=== PATIENT | male | born 1965 | race Caucasian/White ===

== ENCOUNTER 2021-09-30 16:07 | Inpatient (IN) | payer OTHER, BC ==
[~2021-09-30 16:07] MED LIST: Iopamidol 370 76% 50 ML VIAL FS ONE; Iopamidol-370 76% 500 ML 1 ML ONE
[2021-09-30] MEDS ORDERED: CEFAZOLIN 1 GM VIAL ONE (16:21)
[2021-09-30] MEDS ORDERED: Boostrix 0.5 ML (Tdap) VIAL ONE (16:21)
[2021-09-30] MEDS ORDERED: Sodium Bicarb 50 MEQ/50 ML Abboject 8.4% SYRINGE ONE (16:24)
[2021-09-30] MEDS ORDERED: Calcium Chloride 1 GM/10 ML Abboject SYRINGE ONE (16:24)
[2021-09-30 16:38] LABS: #Basophils 0.1 thou/uL (0.0-0.2); #Eosinphils 0.1 thou/uL (0.0-0.7); #Lymphocytes 3.6 thou/uL (1.20-3.40); #Monocytes 0.9 thou/uL (0.11-0.59); #Neutrophils 8.9 thou/uL (1.40-6.50); %Basophils 0.4 % (0.0-1.0); %Eosinophils 0.7 % (0.0-10.0); %Lymphocytes 26.6 % (21.0-51.0); %Monocytes 6.5 % (0.0-10.0); %Neutrophils 65.7 % (42.0-75.0); Hemoglobin 15.5 g/dL (14.0-18.0); Mean Corpuscular HGB CONC 33.9 g/dL (32.0-36.0); Mean Corpuscular Hemoglobin 31.1 pg (27.0-31.0); Mean Corpuscular Volume 91.6 fL (78.0-98.0); Platelet Count 300 thou/uL (130-400); RBC Distribution Width 12.1 % (11.5-14.5); White Blood Cell (WBC) Count 13.5 thou/uL (4.8-10.8)
[2021-09-30 16:39] LABS: INR-International Normal Ratio 1.1; Prothrombin Time 13.9 sec (12.0-14.7)
[2021-09-30 16:51] LABS: ALT (SGPT) 150 U/L (8-55); AST (SGOT) 109 U/L (5-34); Albumin 4.5 g/dL (3.5-5.0); Alkaline Phosphatase 58 U/L (40-110); Anion Gap 17 mmol/L (10-20); BUN (Urea Nitrogen) 17 mg/dL (8.9-20.6); Bilirubin, Total 0.9 mg/dL (0.2-1.2); Calc. Creatinine Clearance 0 mL/min (70-130); Calcium 9.7 mg/dL (7.8-10.44); Carbon Dioxide 23 mmol/L (22-29); Chloride 105 mmol/L (98-107); Globulin 2.3 g/dL (2.4-3.5); Glucose 180 mg/dL (70-105); Potassium 4.1 mmol/L (3.5-5.1); Protein, Total 6.8 g/dL (6.0-8.3); Sodium 141 mmol/L (136-145)
[2021-09-30 16:56] LABS: Acetaminophen Less than 6.0 mcg/mL (10.0-30.0); Alcohol Less than 10 mg/dL (Less than 10); Salicylate Less than 8.0 mg/dL (15.0-30.0)
[2021-09-30 16:58] LABS: Clarity Hazy (Clear); Leukocyte Unable to Interpret Leu/uL (Negative); Nitrite Unable to Interpret (Negative); Protein, Urine (Dipstick) Unable to Interpret mg/dL (Neg-Trace); Specific Gravity, Urine 1.017 (1.002-1.036); pH, Urine 6.5 (5.0-9.0)
[2021-09-30 16:59] LABS: Bilirubin Unable to Interpret (Negative); Blood, Urine Unable to Interpret (Negative); Glucose, Urine (Dipstick) Unable to Interpret mg/dL (Negative); Ketone, Urine Unable to Interpret mg/dL (Negative); Urobilinogen UNABLE TO INTERPRET mg/dL (Less than 2)
[2021-09-30 17:00] LABS: Amphetamine Not Detected (NotDetected); Bacteria/HPF Rare-Few HPF (None Seen); Barbiturates Screen Not Detected (NotDetected); Benzodiazepine Screen Not Detected (NotDetected); Cocaine Metabolite Screen Not Detected (NotDetected); Methadone Not Detected (NotDetected); Methamphetamine Not Detected (NotDetected); Opiate Screen Not Detected (NotDetected); Oxycodone Screen Not Detected (NotDetected); Phencyclidine (PCP) Not Detected (NotDetected); RBC/HPF Greater than 50 HPF (0-3); Squamous Epithelial None Seen HPF (0-3); THC/Cannabinoid Screen Detected (NotDetected); Tricyclic Screen Not Detected (NotDetected); WBC/HPF None Seen HPF (0-3)
[2021-09-30] MEDS ORDERED: Midazolam HCl 2 mg/2 ml Vial ONE (17:14)
[2021-09-30] MEDS ORDERED: Propofol 1,000 MG/100 ML VIAL IV ONE (17:36)
[2021-09-30] MEDS ORDERED: Insulin Regular 300 UNITS/3 ML VIAL SC PRN (18:03)
[2021-09-30] MEDS ORDERED: hydrALAZINE 20 MG/ML VIAL SLOW IVP PRN (18:03)
[2021-09-30] MEDS ORDERED: Dextrose 50% Abboject 50 ML SYRINGE SLOW IVP PRN (18:03)
[2021-09-30] MEDS ORDERED: Dextrose 5% in Water 1,000 ML IV PRN (18:03)
[2021-09-30 18:04] LABS: Actual Bicarbonate (HCO3a) 27.2 mEq/L (22-28); Analyzer IN Cardio ER; Base Excess (BEa) 0.5 mEq/L (-2.0 to +3.0); CO2 Tension 52.5 mmHg (35.0-45.0); Carboxyhemoglobin (COHb) 0.3 gm% (0.0-3.0); Hemoglobin (Hb) 13.9 g/dL (14.0-18.0); O2 Tension (PaO2), arterial 164.4 mmHg (80.0-100.0); Potassium - ABG Lab 3.67 mmol/L (3.70-5.30); pH, Arterial 7.33 (7.35-7.45)
[2021-09-30 18:09] LABS: ALV-art Gradient 482.975 mmHg (0-20); Puncture Site LBA
[2021-09-30 18:37] LABS: CK (CPK) 279 U/L (30-200); Magnesium 1.5 mg/dL (1.6-2.6)
[2021-09-30] MEDS ORDERED: Magnesium Sulfate 3 GM in Sodium Chloride 0.9% 100 ML IV SCH (18:45)
[2021-09-30] MEDS: Sodium Chloride 0.9% 1,000 ML IV SCH (19:10)
[2021-09-30 19:18] LABS: SARS-CoV-2 NAA Rapid Test Not Detected (NotDetected)
[2021-09-30 19:31] LABS: Lactic Acid 3.9 mmol/L (0.5-2.2)
[2021-09-30] MEDS: Famotidine/PF 20 mg/2ml Vial SLOW IVP SCH (21:26)
[2021-09-30 21:32] LABS: Hemoglobin 12.1 g/dL (14.0-18.0); Platelet Count 219 thou/uL (130-400)
[2021-09-30] MEDS ORDERED: Acetaminophen 650 MG/20.3 ML UDCUP PO SCH (22:45)
[2021-09-30 23:31] LABS: Troponin I 0.343 ng/mL (< 0.028)
[2021-09-30] MEDS ORDERED: Hydrocortisone Sod Succ/PF 100 mg/2 ml Vial IVP SCH (23:45)
[2021-10-01] MEDS ORDERED: Midazolam HCl 2 mg/2 ml Vial SLOW IVP SCH (01:15)
[2021-10-01] MEDS ORDERED: Midazolam HCl 2 mg/2 ml Vial ONE ×2 (01:16→22:00)
[2021-10-01] MEDS ORDERED: Fentanyl CADD 100 ML ONE ×2 (02:18→11:33)
[2021-10-01] MEDS: Fentanyl CADD 100 ML IV SCH ×2 (02:22→13:13)
[2021-10-01] MEDS ORDERED: Sodium Chloride 0.9% 500 ML IV SCH (02:45)
[2021-10-01] MEDS: Sodium Chloride 0.9% 1,000 ML IV SCH ×3 (02:51→21:58)
[2021-10-01] MEDS: Propofol 1,000 MG/100 ML VIAL IV PRN (03:31)
[2021-10-01 04:40] LABS: #Lymphocytes 0.9 thou/uL (1.20-3.40); #Monocytes 0.8 thou/uL (0.11-0.59); #Neutrophils 6.2 thou/uL (1.40-6.50); %Basophils 0.2 % (0.0-1.0); %Eosinophils 0.2 % (0.0-10.0); %Lymphocytes 11.2 % (21.0-51.0); %Monocytes 10.3 % (0.0-10.0); %Neutrophils 78.2 % (42.0-75.0); Hemoglobin 9.4 g/dL (14.0-18.0); Mean Corpuscular HGB CONC 33.9 g/dL (32.0-36.0); Mean Corpuscular Hemoglobin 31.2 pg (27.0-31.0); Mean Platelet Volume 6.6 fL (7.4-10.4); Platelet Count 153 thou/uL (130-400); RBC Distribution Width 12.6 % (11.5-14.5); Red Blood Cell (RBC) Count 3.02 mill/uL (4.70-6.10); White Blood Cell (WBC) Count 7.9 thou/uL (4.8-10.8)
[2021-10-01 05:01] LABS: Anion Gap 12 mmol/L (10-20); BUN (Urea Nitrogen) 20 mg/dL (8.4-25.7); CK (CPK) 1308 U/L (30-200); Calc. Creatinine Clearance 71 mL/min (70-130); Calcium 8.8 mg/dL (7.8-10.44); Carbon Dioxide 27 mmol/L (22-29); Chloride 108 mmol/L (98-107); Glucose 141 mg/dL (70-105); Magnesium 2.2 mg/dL (1.6-2.6); Phosphorus 4.2 mg/dL (2.3-4.7); Potassium 4.2 mmol/L (3.5-5.1); Sodium 143 mmol/L (136-145)
[2021-10-01] MEDS: Acetaminophen 650 MG/20.3 ML UDCUP PO SCH ×4 (05:26→23:45)
[2021-10-01] MEDS: Hydrocortisone Sod Succ/PF 100 mg/2 ml Vial IVP SCH ×4 (06:23→23:45)
[2021-10-01 07:10] LABS: Actual Bicarbonate (HCO3a) 23.6 mEq/L (22-28); Base Excess (BEa) -1.2 mEq/L (-2.0 to +3.0); CO2 Tension 39.6 mmHg (35.0-45.0); Calcium, Ionized (arterial) 1.15 mmol/L (1.12-1.30); Carboxyhemoglobin (COHb) 0.3 gm% (0.0-3.0); Hemoglobin (Hb) 9.9 g/dL (14.0-18.0); O2 Tension (PaO2), arterial 140.5 mmHg (80.0-100.0); Potassium - ABG Lab 4.55 mmol/L (3.70-5.30); Puncture Site RBA; pH, Arterial 7.39 (7.35-7.45)
[2021-10-01] MEDS ORDERED: Sodium Chloride 0.9% 1,000 ML IV SCH ×3 (08:00→21:15)
[2021-10-01] MEDS ORDERED: Propofol BOLUS 1,000 MG/100 ML VIAL IV PRN (08:30)
[2021-10-01] MEDS ORDERED: Fentanyl BOLUS 250 ML IVPB PRN (08:30)
[2021-10-01] MEDS: Famotidine/PF 20 mg/2ml Vial SLOW IVP SCH ×2 (08:45→21:57)
[2021-10-01] MEDS ORDERED: Vecuronium 10 MG VIAL ONE (09:20)
[2021-10-01] MEDS ORDERED: Sterile Water 10 ML ONE ×2 (09:20)
[2021-10-01] MEDS ORDERED: Vecuronium 10 MG VIAL IV SCH (09:45)
[2021-10-01] MEDS ORDERED: Sterile Water 10 ML VIAL FS SCH (09:45)
[2021-10-01] MEDS ORDERED: Midazolam HCl 2 mg/2 ml Vial SLOW IVP PRN (09:56)
[2021-10-01 10:02] LABS: Troponin I 0.241 ng/mL (< 0.028)
[2021-10-01] MEDS ORDERED: Albumin 5% 500 ML ONE (10:58)
[2021-10-01] MEDS ORDERED: Albumin 5% 250 ML ONE ×3 (11:02→12:06)
[2021-10-01 12:33] LABS: Actual Bicarbonate (HCO3a) 23.5 mEq/L (22-28); Analyzer IN Cardio OR; Base Excess (BEa) 0.2 mEq/L (-2.0 to +3.0); CO2 Tension 32.1 mmHg (35.0-45.0); Calcium, Ionized (arterial) 1.03 mmol/L (1.12-1.30); Carboxyhemoglobin (COHb) 1.5 gm% (0.0-3.0); Hemoglobin (Hb) 6.9 g/dL (14.0-18.0); pH, Arterial 7.48 (7.35-7.45)
[2021-10-01 12:39] LABS: Puncture Site Arterial Line
[2021-10-01 12:40] LABS: ALV-art Gradient 184.375 mmHg (0-20)
[2021-10-01] MEDS ORDERED: Calcium Chloride 1 GM/10 ML Abboject SYRINGE IVP SCH (13:00)
[2021-10-01 14:54] LABS: #Lymphocytes 0.8 thou/uL (1.20-3.40); #Monocytes 0.5 thou/uL (0.11-0.59); #Neutrophils 3.9 thou/uL (1.40-6.50); %Basophils 0.2 % (0.0-1.0); %Eosinophils 0.1 % (0.0-10.0); %Lymphocytes 15.4 % (21.0-51.0); %Monocytes 8.8 % (0.0-10.0); %Neutrophils 75.5 % (42.0-75.0); Hemoglobin 8.9 g/dL (14.0-18.0); Mean Corpuscular HGB CONC 35.8 g/dL (32.0-36.0); Mean Corpuscular Hemoglobin 33.1 pg (27.0-31.0); Mean Corpuscular Volume 92.6 fL (78.0-98.0); Mean Platelet Volume 6.6 fL (7.4-10.4); Platelet Count 83 thou/uL (130-400); RBC Distribution Width 12.4 % (11.5-14.5); Red Blood Cell (RBC) Count 2.67 mill/uL (4.70-6.10); White Blood Cell (WBC) Count 5.1 thou/uL (4.8-10.8)
[2021-10-01 14:58] LABS: INR-International Normal Ratio 1.4; Prothrombin Time 16.9 sec (12.0-14.7)
[2021-10-01 14:59] LABS: PTT 41.7 sec (22.9-36.1)
[2021-10-01 15:06] LABS: Lactic Acid 2.7 mmol/L (0.5-2.2)
[2021-10-01 15:09] LABS: Anion Gap 10 mmol/L (10-20); BUN (Urea Nitrogen) 24 mg/dL (8.4-25.7); Calc. Creatinine Clearance 98 mL/min (70-130); Calcium 10.7 mg/dL (7.8-10.44); Carbon Dioxide 23 mmol/L (22-29); Chloride 113 mmol/L (98-107); Glucose 147 mg/dL (70-105); Magnesium 2.1 mg/dL (1.6-2.6); Phosphorus 3.2 mg/dL (2.3-4.7); Potassium 4.3 mmol/L (3.5-5.1); Sodium 142 mmol/L (136-145)
[2021-10-01 15:11] LABS: Band 14 % (5-11); Lymphocytes 10 % (21-51); MDiff Complete? YES; Monocytes 5 % (0-10); Neutrophil 71 % (42-75); Platelet Morphology Comment Appears Decreased; Polychromasia SLIGHT = 2-3 cells (100X) (0-2/hpf)
[2021-10-01 22:14] LABS: Hemoglobin 9.5 g/dL (14.0-18.0)
[2021-10-02] MEDS ORDERED: Dexmedetomidine 1,000 MCG in Sodium Chloride 0.9% 250 ML 240 ML IVPB SCH (00:15)
[2021-10-02] MEDS ORDERED: Midazolam HCl 2 mg/2 ml Vial SLOW IVP SCH (02:30)
[2021-10-02] MEDS: Propofol 1,000 MG/100 ML VIAL IV PRN ×3 (03:01→15:02)
[2021-10-02] MEDS: Sodium Chloride 0.9% 1,000 ML IV SCH ×3 (03:53→19:59)
[2021-10-02 04:50] LABS: Hemoglobin 8.8 g/dL (14.0-18.0); Mean Corpuscular Hemoglobin 32.2 pg (27.0-31.0); Mean Corpuscular Volume 92.2 fL (78.0-98.0); Mean Platelet Volume 6.9 fL (7.4-10.4); Platelet Count 74 thou/uL (130-400); RBC Distribution Width 12.5 % (11.5-14.5); Red Blood Cell (RBC) Count 2.74 mill/uL (4.70-6.10); White Blood Cell (WBC) Count 6.3 thou/uL (4.8-10.8)
[2021-10-02 04:51] LABS: Band 13 % (5-11); Hypochromia SLIGHT = 6-15 cells (100X) (0-5/hpf); Lactic Acid 1.4 mmol/L (0.5-2.2); Lymphocytes 9 % (21-51); MDiff Complete? YES; Monocytes 7 % (0-10); Neutrophil 71 % (42-75); Platelet Morphology Comment Appears Decreased
[2021-10-02 04:54] LABS: Troponin I 0.136 ng/mL (< 0.028)
[2021-10-02 05:14] LABS: Anion Gap 10 mmol/L (10-20); BUN (Urea Nitrogen) 23 mg/dL (8.4-25.7); CK (CPK) 1211 U/L (30-200); Calc. Creatinine Clearance 135 mL/min (70-130); Calcium 8.5 mg/dL (7.8-10.44); Carbon Dioxide 23 mmol/L (22-29); Chloride 112 mmol/L (98-107); Glucose 140 mg/dL (70-105); Magnesium 1.8 mg/dL (1.6-2.6); Phosphorus 2.2 mg/dL (2.3-4.7); Potassium 3.8 mmol/L (3.5-5.1); Sodium 141 mmol/L (136-145)
[2021-10-02] MEDS: Hydrocortisone Sod Succ/PF 100 mg/2 ml Vial IVP SCH ×4 (06:00→23:06)
[2021-10-02] MEDS: Acetaminophen 650 MG/20.3 ML UDCUP PO SCH ×4 (06:00→23:06)
[2021-10-02] MEDS: Fentanyl CADD 100 ML IV SCH ×2 (07:22→20:55)
[2021-10-02] MEDS ORDERED: Potassium Phosphate 15 MMOL, Magnesium Sulfate 2 GM in Sodium Chloride 0.9% 250 ML 250 ML IVPB SCH (07:45)
[2021-10-02] MEDS ORDERED: Magnesium Sulfate 2 GM in Sodium Chloride 0.9% 100 ML IVPB SCH (08:00)
[2021-10-02] MEDS: Famotidine/PF 20 mg/2ml Vial SLOW IVP SCH ×2 (08:25→22:46)
[2021-10-02 10:37] LABS: Hemoglobin 9.7 g/dL (14.0-18.0); Mean Corpuscular HGB CONC 34.8 g/dL (32.0-36.0); Mean Corpuscular Hemoglobin 32.2 pg (27.0-31.0); Mean Corpuscular Volume 92.5 fL (78.0-98.0); Mean Platelet Volume 6.8 fL (7.4-10.4); Platelet Count 74 thou/uL (130-400); RBC Distribution Width 12.5 % (11.5-14.5); Red Blood Cell (RBC) Count 2.99 mill/uL (4.70-6.10); White Blood Cell (WBC) Count 5.1 thou/uL (4.8-10.8)
[2021-10-02 10:49] LABS: Lactic Acid 2.3 mmol/L (0.5-2.2)
[2021-10-02 11:26] LABS: Band 38 % (5-11); Lymphocytes 7 % (21-51); MDiff Complete? YES; Monocytes 2 % (0-10); Neutrophil 53 % (42-75); Platelet Morphology Comment Appears Decreased; Polychromasia SLIGHT = 2-3 cells (100X) (0-2/hpf)
[2021-10-02] MEDS ORDERED: Iopamidol-370 76% 500 ML 1 ML ONE (12:20)
[2021-10-02] MEDS ORDERED: Vecuronium 10 MG VIAL ONE (15:06)
[2021-10-02 16:26] LABS: INR-International Normal Ratio 1.4; Prothrombin Time 16.9 sec (12.0-14.7)
[2021-10-02 16:27] LABS: PTT 39.3 sec (22.9-36.1)
[2021-10-02] MEDS ORDERED: Norepinephrine 8 MG/0.9% NS 250 ML ONE (16:34)
[2021-10-02] MEDS ORDERED: Norepinephrine 8 MG/0.9% NS 250 ML IVPB SCH (17:15)
[2021-10-02] MEDS ORDERED: Fentanyl 100 MCG/2 ML VIAL ONE (17:16)
[2021-10-02] MEDS ORDERED: Phenylephrine 10 MG/ML VIAL ONE (17:16)
[2021-10-02] MEDS ORDERED: Bupivacaine PF 0.5% 30 ML VIAL ONE (17:17)
[2021-10-02] MEDS ORDERED: Lidocaine 1% w/Epinephrine 1:100K 20 ML VIAL ONE (17:17)
[2021-10-02] MEDS ORDERED: Bupivacaine 0.25% HCL 30 ML VIAL ONE (17:17)
[2021-10-02] MEDS ORDERED: Albuterol Sulfate HFA (OR ONLY) ONE (17:34)
[2021-10-02] MEDS ORDERED: PHENYLEPHRINE-NS 100 MCG/ML 10 ML SYRINGE ONE (17:34)
[2021-10-02] MEDS ORDERED: Rocuronium Bromide 10 MG/ML (10ML VIAL) ONE (17:34)
[2021-10-02] MEDS ORDERED: Midazolam HCl 5 mg/5 ml Vial ONE (18:50)
[2021-10-02 19:57] LABS: Actual Bicarbonate (HCO3a) 18.6 mEq/L (22-28); Base Excess (BEa) -7.7 mEq/L (-2.0 to +3.0); CO2 Tension 41.4 mmHg (35.0-45.0); Calcium, Ionized (arterial) 1.13 mmol/L (1.12-1.30); Carboxyhemoglobin (COHb) 0.3 gm% (0.0-3.0); Potassium - ABG Lab 3.36 mmol/L (3.70-5.30); pH, Arterial 7.27 (7.35-7.45)
[2021-10-02 20:03] LABS: Puncture Site Arterial Line
[2021-10-02] MEDS ORDERED: Fentanyl CADD 100 ML ONE (20:50)
[2021-10-03] MEDS: Propofol 1,000 MG/100 ML VIAL IV PRN ×3 (01:15→17:27)
[2021-10-03] MEDS ORDERED: Midazolam HCl 2 mg/2 ml Vial SLOW IVP PRN (03:42)
[2021-10-03] MEDS: Sodium Chloride 0.9% 1,000 ML IV SCH ×2 (03:44→14:11)
[2021-10-03] MEDS ORDERED: Fentanyl CADD 100 ML ONE (04:47)
[2021-10-03] MEDS: Fentanyl CADD 100 ML IV SCH ×2 (04:52→14:13)
[2021-10-03 04:53] LABS: Lactic Acid 2.4 mmol/L (0.5-2.2)
[2021-10-03 04:59] LABS: Anion Gap 10 mmol/L (10-20); BUN (Urea Nitrogen) 18 mg/dL (8.4-25.7); CK (CPK) 1436 U/L (30-200); Calc. Creatinine Clearance 149 mL/min (70-130); Calcium 7.8 mg/dL (7.8-10.44); Carbon Dioxide 22 mmol/L (22-29); Chloride 116 mmol/L (98-107); Glucose 111 mg/dL (70-105); Magnesium 1.9 mg/dL (1.6-2.6); Potassium 4.2 mmol/L (3.5-5.1); Sodium 144 mmol/L (136-145)
[2021-10-03 05:02] LABS: Band 51 % (5-11); Hemoglobin 9.2 g/dL (14.0-18.0); Lymphocytes 6 % (21-51); MDiff Complete? YES; Mean Corpuscular HGB CONC 33.9 g/dL (32.0-36.0); Mean Corpuscular Hemoglobin 31.6 pg (27.0-31.0); Mean Corpuscular Volume 93.2 fL (78.0-98.0); Mean Platelet Volume 7.2 fL (7.4-10.4); Metamyelocyte 5 % (0-0); Monocytes 4 % (0-10); Myelocyte 1 % (0-0); Neutrophil 32 % (42-75); Platelet Count 112 thou/uL (130-400); Platelet Morphology Comment Appears Decreased; RBC Distribution Width 13.1 % (11.5-14.5); RBC Morphology Normal; Reactive Lymphocytes 1 % (0-10); Red Blood Cell (RBC) Count 2.89 mill/uL (4.70-6.10); White Blood Cell (WBC) Count 7.8 thou/uL (4.8-10.8)
[2021-10-03] MEDS: Hydrocortisone Sod Succ/PF 100 mg/2 ml Vial IVP SCH ×4 (05:15→23:58)
[2021-10-03] MEDS: Acetaminophen 650 MG/20.3 ML UDCUP PO SCH ×4 (05:15→23:58)
[2021-10-03 07:33] LABS: Actual Bicarbonate (HCO3a) 21.8 mEq/L (22-28); Base Excess (BEa) -4.7 mEq/L (-2.0 to +3.0); Calcium, Ionized (arterial) 1.08 mmol/L (1.12-1.30); Carboxyhemoglobin (COHb) 0.3 gm% (0.0-3.0); Hemoglobin (Hb) 9.3 g/dL (14.0-18.0); O2 Tension (PaO2), arterial 73.3 mmHg (80.0-100.0); Potassium - ABG Lab 4.29 mmol/L (3.70-5.30); pH, Arterial 7.28 (7.35-7.45)
[2021-10-03 07:48] LABS: Puncture Site Arterial Line
[2021-10-03] MEDS: Famotidine/PF 20 mg/2ml Vial SLOW IVP SCH ×2 (08:33→21:45)
[2021-10-03] MEDS ORDERED: Furosemide 40 MG/4 ML VIAL ONE (08:57)
[2021-10-03] MEDS ORDERED: FLU VACC QS2021-22(6MOS UP)/PF 60 MCG/0.5 ML SYRINGE IM ONE (09:00)
[2021-10-03] MEDS ORDERED: Furosemide 20 MG/2 ML VIAL SLOW IVP SCH (09:00)
[2021-10-03] MEDS: Vecuronium Bromide 50 MG in Sodium Chloride 0.9% 250 ML 250 ML IV SCH (10:33)
[2021-10-03] MEDS: Norepinephrine 8 MG/0.9% NS 250 ML IVPB SCH (10:33)
[2021-10-03] MEDS: Dexmedetomidine 1,000 MCG in Sodium Chloride 0.9% 250 ML 240 ML IVPB SCH (23:37)
[2021-10-04] MEDS: Vecuronium Bromide 50 MG in Sodium Chloride 0.9% 250 ML 250 ML IV SCH ×2 (00:05→11:27)
[2021-10-04] MEDS ORDERED: Fentanyl CADD 100 ML ONE ×3 (00:30→21:07)
[2021-10-04] MEDS: Fentanyl CADD 100 ML IV SCH ×3 (01:02→21:10)
[2021-10-04] MEDS: Propofol 1,000 MG/100 ML VIAL IV PRN ×4 (03:00→18:32)
[2021-10-04 03:30] LABS: Anion Gap 9 mmol/L (10-20); BUN (Urea Nitrogen) 14 mg/dL (8.4-25.7); CK (CPK) 546 U/L (30-200); Calc. Creatinine Clearance 179 mL/min (70-130); Calcium 8.5 mg/dL (7.8-10.44); Carbon Dioxide 29 mmol/L (22-29); Chloride 112 mmol/L (98-107); Glucose 130 mg/dL (70-105); Magnesium 2.1 mg/dL (1.6-2.6); Potassium 4.2 mmol/L (3.5-5.1); Sodium 146 mmol/L (136-145)
[2021-10-04 03:36] LABS: Phosphorus 2.1 mg/dL (2.3-4.7)
[2021-10-04 04:24] LABS: Band 36 % (5-11); Hemoglobin 9.3 g/dL (14.0-18.0); Lymphocytes 17 % (21-51); MDiff Complete? YES; Mean Corpuscular HGB CONC 35.8 g/dL (32.0-36.0); Mean Corpuscular Hemoglobin 33.1 pg (27.0-31.0); Mean Corpuscular Volume 92.7 fL (78.0-98.0); Mean Platelet Volume 6.6 fL (7.4-10.4); Monocytes 4 % (0-10); Neutrophil 43 % (42-75); Platelet Count 115 thou/uL (130-400); Platelet Morphology Comment Appears Decreased; RBC Distribution Width 13.2 % (11.5-14.5); Red Blood Cell (RBC) Count 2.81 mill/uL (4.70-6.10); White Blood Cell (WBC) Count 6.8 thou/uL (4.8-10.8)
[2021-10-04] MEDS: Hydrocortisone Sod Succ/PF 100 mg/2 ml Vial IVP SCH ×4 (05:37→23:27)
[2021-10-04] MEDS: Acetaminophen 650 MG/20.3 ML UDCUP PO SCH ×4 (05:37→23:26)
[2021-10-04] MEDS: Norepinephrine 8 MG/0.9% NS 250 ML IVPB SCH ×2 (05:49→22:04)
[2021-10-04] MEDS: Sodium Chloride 0.9% 1,000 ML IV SCH ×2 (06:12→20:44)
[2021-10-04 07:04] LABS: Base Excess (BEa) 2.5 mEq/L (-2.0 to +3.0); Calcium, Ionized (arterial) 1.13 mmol/L (1.12-1.30); Carboxyhemoglobin (COHb) 0.3 gm% (0.0-3.0); Hemoglobin (Hb) 8.6 g/dL (14.0-18.0); O2 Tension (PaO2), arterial 82.1 mmHg (80.0-100.0); Potassium - ABG Lab 4.05 mmol/L (3.70-5.30); pH, Arterial 7.38 (7.35-7.45)
[2021-10-04 07:38] LABS: Puncture Site Arterial Line
[2021-10-04] MEDS: Polyethylene Glycol 3350 17 GM Packet PO SCH (09:03)
[2021-10-04] MEDS: Senokot S 8.6-50 MG TAB PO SCH ×2 (09:04→20:27)
[2021-10-04] MEDS: Famotidine/PF 20 mg/2ml Vial SLOW IVP SCH ×2 (09:09→20:28)
[2021-10-04] MEDS: Dexmedetomidine 1,000 MCG in Sodium Chloride 0.9% 250 ML 240 ML IVPB SCH ×2 (10:53→21:41)
[2021-10-04 16:53] LABS: Actual Bicarbonate (HCO3a) 30.3 mEq/L (22-28); Base Excess (BEa) 2.3 mEq/L (-2.0 to +3.0); Calcium, Ionized (arterial) 1.19 mmol/L (1.12-1.30); Carboxyhemoglobin (COHb) 0.2 gm% (0.0-3.0); Hemoglobin (Hb) 9.2 g/dL (14.0-18.0); O2 Tension (PaO2), arterial 74.5 mmHg (80.0-100.0); Potassium - ABG Lab 3.87 mmol/L (3.70-5.30); pH, Arterial 7.26 (7.35-7.45)
[2021-10-04] MEDS ORDERED: Piperacillin/Tazobactam 4.5 GM in Sodium Chloride 0.9% 100 ML IVPB SCH ×2 (16:55→22:00)
[2021-10-04 17:00] LABS: Puncture Site Arterial Line
[2021-10-04] MEDS ORDERED: Piperacillin/Tazobactam 3.375 GM in Sodium Chloride 0.9% 100 ML IVPB SCH (17:00)
[2021-10-04] MEDS ORDERED: Albumin 5% 250 ML ONE (18:23)
[2021-10-04] MEDS: Albumin 5% 250 ML ONE ×2 (18:25→18:26)
[2021-10-04] MEDS ORDERED: Sodium Chloride 0.9% 500 ML IV SCH ×2 (18:45)
[2021-10-04] MEDS ORDERED: Lactated Ringer's 500 ML IV SCH (18:45)
[2021-10-04] MEDS ORDERED: Calcium Chloride 1 GM/10 ML Abboject SYRINGE ONE (19:08)
[2021-10-04 19:11] LABS: Anion Gap 10 mmol/L (10-20); BUN (Urea Nitrogen) 18 mg/dL (8.4-25.7); Calc. Creatinine Clearance 148 mL/min (70-130); Carbon Dioxide 29 mmol/L (22-29); Chloride 112 mmol/L (98-107); Glucose 105 mg/dL (70-105); Magnesium 2.2 mg/dL (1.6-2.6); Phosphorus 1.6 mg/dL (2.3-4.7); Sodium 147 mmol/L (136-145)
[2021-10-04 19:11] LABS: Hemoglobin 7.8 g/dL (14.0-18.0); Mean Corpuscular HGB CONC 34.4 g/dL (32.0-36.0); Mean Corpuscular Hemoglobin 32.3 pg (27.0-31.0); Mean Corpuscular Volume 93.7 fL (78.0-98.0); Mean Platelet Volume 6.2 fL (7.4-10.4); Platelet Count 129 thou/uL (130-400); Red Blood Cell (RBC) Count 2.41 mill/uL (4.70-6.10); White Blood Cell (WBC) Count 6.1 thou/uL (4.8-10.8)
[2021-10-04] MEDS: Vasopressin 20 UNIT, Admixture Fee 1 EACH in Sodium Chloride 0.9% 50 ML IV SCH (19:26)
[2021-10-04 19:39] LABS: Band 49 % (5-11); Lymphocytes 9 % (21-51); MDiff Complete? YES; Monocytes 5 % (0-10); Myelocyte 1 % (0-0); Neutrophil 36 % (42-75); Platelet Morphology Comment Appears Decreased; RBC Morphology Normal
[2021-10-04] MEDS ORDERED: Potassium Phosphate 30 MMOL in Sodium Chloride 0.9% 250 ML 250 ML IVPB SCH (20:00)
[2021-10-04] MEDS: Piperacillin/Tazobactam 3.375 GM in Sodium Chloride 0.9% 100 ML IVPB SCH (20:28)
[2021-10-05] MEDS: Vasopressin 20 UNIT, Admixture Fee 1 EACH in Sodium Chloride 0.9% 50 ML IV SCH (01:54)
[2021-10-05] MEDS: Propofol 1,000 MG/100 ML VIAL IV PRN ×3 (04:51→19:59)
[2021-10-05] MEDS: Piperacillin/Tazobactam 3.375 GM in Sodium Chloride 0.9% 100 ML IVPB SCH (05:11)
[2021-10-05] MEDS: Acetaminophen 650 MG/20.3 ML UDCUP PO SCH ×4 (05:11→23:10)
[2021-10-05] MEDS: Hydrocortisone Sod Succ/PF 100 mg/2 ml Vial IVP SCH ×4 (05:11→23:14)
[2021-10-05 05:17] LABS: Anion Gap 11 mmol/L (10-20); BUN (Urea Nitrogen) 22 mg/dL (8.4-25.7); Calc. Creatinine Clearance 144 mL/min (70-130); Carbon Dioxide 28 mmol/L (22-29); Chloride 112 mmol/L (98-107); Glucose 145 mg/dL (70-105); Phosphorus 2.2 mg/dL (2.3-4.7); Sodium 147 mmol/L (136-145)
[2021-10-05 06:11] LABS: Hemoglobin 7.4 g/dL (14.0-18.0); Mean Corpuscular HGB CONC 34.6 g/dL (32.0-36.0); Mean Corpuscular Hemoglobin 32.4 pg (27.0-31.0); Mean Corpuscular Volume 93.7 fL (78.0-98.0); Mean Platelet Volume 6.2 fL (7.4-10.4); Platelet Count 111 thou/uL (130-400); RBC Distribution Width 12.9 % (11.5-14.5); Red Blood Cell (RBC) Count 2.29 mill/uL (4.70-6.10); White Blood Cell (WBC) Count 6.7 thou/uL (4.8-10.8)
[2021-10-05 06:14] LABS: Band 55 % (5-11); Dohle Bodies SLIGHT; Lymphocytes 9 % (21-51); MDiff Complete? YES; Monocytes 2 % (0-10); Neutrophil 34 % (42-75); Toxic Granulation SLIGHT
[2021-10-05] MEDS ORDERED: Fentanyl CADD 100 ML ONE ×2 (06:20→15:58)
[2021-10-05] MEDS: Fentanyl CADD 100 ML IV SCH ×2 (06:36→16:04)
[2021-10-05 07:28] LABS: Actual Bicarbonate (HCO3a) 25.5 mEq/L (22-28); Base Excess (BEa) 0.8 mEq/L (-2.0 to +3.0); Calcium, Ionized (arterial) 1.16 mmol/L (1.12-1.30); Carboxyhemoglobin (COHb) 1.1 gm% (0.0-3.0); Hemoglobin (Hb) 6.9 g/dL (14.0-18.0); O2 Tension (PaO2), arterial 128.6 mmHg (80.0-100.0); Potassium - ABG Lab 3.74 mmol/L (3.70-5.30); pH, Arterial 7.41 (7.35-7.45)
[2021-10-05 07:37] LABS: Puncture Site Arterial Line
[2021-10-05] MEDS ORDERED: Dexmedetomidine 1,000 MCG in Dextrose 5% in Water 240 ML IVPB SCH (08:00)
[2021-10-05] MEDS: Senokot S 8.6-50 MG TAB PO SCH ×2 (08:12→19:57)
[2021-10-05] MEDS: Polyethylene Glycol 3350 17 GM Packet PO SCH (08:12)
[2021-10-05] MEDS: Vecuronium Bromide 50 MG in Sodium Chloride 0.9% 250 ML 250 ML IV SCH (08:20)
[2021-10-05] MEDS: Dexmedetomidine 1,000 MCG in Sodium Chloride 0.9% 250 ML 240 ML IVPB SCH ×2 (08:24→08:25)
[2021-10-05] MEDS: Famotidine/PF 20 mg/2ml Vial SLOW IVP SCH ×2 (08:26→19:58)
[2021-10-05] MEDS ORDERED: WATER IV SCH (09:00)
[2021-10-05] MEDS ORDERED: ADMIXTURE FEE IV SCH (09:00)
[2021-10-05] MEDS ORDERED: DEXTROSE IV SCH (09:00)
[2021-10-05] MEDS ORDERED: VASOPRESSIN IV SCH (09:00)
[2021-10-05] MEDS: Piperacillin/Tazobactam 3.375 GM in Dextrose 5% in Water 100 ML IVPB SCH ×2 (12:00→19:58)
[2021-10-05] MEDS ORDERED: NS IVPB SCH (13:34)
[2021-10-05] MEDS ORDERED: DEXMEDETOMIDINE IVPB SCH (13:34)
[2021-10-05] MEDS ORDERED: WATER IVPB SCH (13:34)
[2021-10-05] MEDS ORDERED: KCL IVPB SCH (13:34)
[2021-10-05] MEDS ORDERED: DEXTROSE IVPB SCH (13:34)
[2021-10-05] MEDS: Sodium Chloride 0.9% 1,000 ML IV SCH (14:32)
[2021-10-05] MEDS ORDERED: Albumin 5% 250 ML ONE (15:19)
[2021-10-05] MEDS ORDERED: diphenhydrAMINE 50 MG/ML VIAL IVP STA (15:27)
[2021-10-05] MEDS ORDERED: Digoxin 0.5 MG/2 ML AMP SLOW IVP STA (15:33)
[2021-10-05 15:48] LABS: Hemoglobin 8.5 g/dL (14.0-18.0); Mean Corpuscular HGB CONC 32.7 g/dL (32.0-36.0); Mean Corpuscular Hemoglobin 30.6 pg (27.0-31.0); Mean Corpuscular Volume 93.6 fL (78.0-98.0); Mean Platelet Volume 6.9 fL (7.4-10.4); Platelet Count 116 thou/uL (130-400); RBC Distribution Width 14.1 % (11.5-14.5); Red Blood Cell (RBC) Count 2.76 mill/uL (4.70-6.10); White Blood Cell (WBC) Count 7.8 thou/uL (4.8-10.8)
[2021-10-05] MEDS ORDERED: Digoxin 0.5 MG/2 ML AMP ONE (15:55)
[2021-10-05 16:11] LABS: Anion Gap 14 mmol/L (10-20); BUN (Urea Nitrogen) 24 mg/dL (8.4-25.7); Calc. Creatinine Clearance 150 mL/min (70-130); Calcium 8.6 mg/dL (7.8-10.44); Carbon Dioxide 23 mmol/L (22-29); Chloride 112 mmol/L (98-107); Glucose 181 mg/dL (70-105); Phosphorus 2.1 mg/dL (2.3-4.7); Potassium 3.7 mmol/L (3.5-5.1); Sodium 145 mmol/L (136-145)
[2021-10-05 16:16] LABS: Troponin I 0.023 ng/mL (< 0.028)
[2021-10-05 16:21] LABS: Band 32 % (5-11); Dohle Bodies SLIGHT; Lymphocytes 8 % (21-51); MDiff Complete? YES; Metamyelocyte 5 % (0-0); Monocytes 13 % (0-10); Myelocyte 1 % (0-0); Neutrophil 41 % (42-75); Platelet Morphology Comment Appears Decreased; Polychromasia SLIGHT = 2-3 cells (100X) (0-2/hpf); Toxic Granulation SLIGHT; Vacuoles SLIGHT
[2021-10-05] MEDS ORDERED: Furosemide 20 MG/2 ML VIAL SLOW IVP SCH (17:00)
[2021-10-05] MEDS: Digoxin 0.5 MG/2 ML AMP SLOW IVP SCH (23:14)
[2021-10-06] MEDS: Vecuronium Bromide 50 MG in Sodium Chloride 0.9% 250 ML 250 ML IV SCH ×2 (02:09→12:36)
[2021-10-06] MEDS ORDERED: Fentanyl CADD 100 ML ONE (03:36)
[2021-10-06] MEDS: Sodium Chloride 0.9% 1,000 ML IV SCH ×2 (04:24→21:06)
[2021-10-06] MEDS: Fentanyl CADD 100 ML IV SCH ×2 (04:40→13:52)
[2021-10-06] MEDS: Piperacillin/Tazobactam 3.375 GM in Dextrose 5% in Water 100 ML IVPB SCH ×3 (04:41→21:05)
[2021-10-06] MEDS: Acetaminophen 650 MG/20.3 ML UDCUP PO SCH ×4 (05:15→23:38)
[2021-10-06] MEDS: Hydrocortisone Sod Succ/PF 100 mg/2 ml Vial IVP SCH ×4 (05:16→23:39)
[2021-10-06 05:43] LABS: Anion Gap 10 mmol/L (10-20); BUN (Urea Nitrogen) 23 mg/dL (8.4-25.7); Calc. Creatinine Clearance 153 mL/min (70-130); Calcium 8.7 mg/dL (7.8-10.44); Carbon Dioxide 31 mmol/L (22-29); Chloride 110 mmol/L (98-107); Glucose 138 mg/dL (70-105); Magnesium 1.9 mg/dL (1.6-2.6); Phosphorus 2.1 mg/dL (2.3-4.7); Potassium 3.4 mmol/L (3.5-5.1); Sodium 148 mmol/L (136-145)
[2021-10-06 05:48] LABS: Digoxin 0.48 ng/mL (0.8-2.0)
[2021-10-06] MEDS: Digoxin 0.5 MG/2 ML AMP SLOW IVP SCH ×3 (08:36→23:42)
[2021-10-06] MEDS: Famotidine/PF 20 mg/2ml Vial SLOW IVP SCH ×2 (08:40→21:06)
[2021-10-06 09:00] LABS: Band 51 % (5-11); Hemoglobin 8.4 g/dL (14.0-18.0); Lymphocytes 10 % (21-51); MDiff Complete? YES; Mean Corpuscular HGB CONC 33.2 g/dL (32.0-36.0); Mean Corpuscular Volume 93.4 fL (78.0-98.0); Mean Platelet Volume 6.9 fL (7.4-10.4); Metamyelocyte 1 % (0-0); Monocytes 4 % (0-10); Myelocyte 1 % (0-0); Neutrophil 33 % (42-75); Nucleated RBC 2 % (0); Platelet Count 173 thou/uL (130-400); RBC Distribution Width 14.2 % (11.5-14.5); Toxic Granulation SLIGHT
[2021-10-06 09:07] LABS: Band 74 % (5-11); Hemoglobin 8.1 g/dL (14.0-18.0); Lymphocytes 7 % (21-51); MDiff Complete? YES; Mean Corpuscular HGB CONC 32.5 g/dL (32.0-36.0); Mean Corpuscular Hemoglobin 30.2 pg (27.0-31.0); Mean Platelet Volume 6.5 fL (7.4-10.4); Metamyelocyte 1 % (0-0); Monocytes 2 % (0-10); Myelocyte 1 % (0-0); Neutrophil 15 % (42-75); Platelet Count 165 thou/uL (130-400); Platelet Morphology Comment Appears Adequate; Polychromasia SLIGHT = 2-3 cells (100X) (0-2/hpf); RBC Distribution Width 14.4 % (11.5-14.5); Red Blood Cell (RBC) Count 2.69 mill/uL (4.70-6.10); Toxic Granulation SLIGHT; White Blood Cell (WBC) Count 11.6 thou/uL (4.8-10.8)
[2021-10-06] MEDS: Propofol 1,000 MG/100 ML VIAL IV PRN ×4 (09:48→21:07)
[2021-10-06] MEDS: Polyethylene Glycol 3350 17 GM Packet PO SCH (10:42)
[2021-10-06] MEDS: Senokot S 8.6-50 MG TAB PO SCH ×2 (10:45→21:25)
[2021-10-06 13:43] LABS: Actual Bicarbonate (HCO3a) 31.7 mEq/L (22-28); Base Excess (BEa) 7.3 mEq/L (-2.0 to +3.0); CO2 Tension 44.6 mmHg (35.0-45.0); Carboxyhemoglobin (COHb) 1.1 gm% (0.0-3.0); Hemoglobin (Hb) 7.3 g/dL (14.0-18.0); O2 Tension (PaO2), arterial 91.1 mmHg (80.0-100.0); pH, Arterial 7.47 (7.35-7.45)
[2021-10-06 13:45] LABS: Puncture Site Arterial Line
[2021-10-06] MEDS: Furosemide 20 MG/2 ML VIAL SLOW IVP SCH (13:52)
[2021-10-06] MEDS ORDERED: Calcium Chloride 1 GM/10 ML Abboject SYRINGE IVP SCH (14:00)
[2021-10-06] MEDS ORDERED: Erythromycin Base 250 MG TAB PER TUBE SCH ×2 (14:45→18:00)
[2021-10-06] MEDS: E.E.S. 200 MG/5 ML Oral Suspension PER TUBE SCH ×2 (17:21→23:39)
[2021-10-06] MEDS ORDERED: Erythromycin 250 MG in Sodium Chloride 0.9% 250 ML 250 ML IVPB SCH (18:00)
[2021-10-06] MEDS: Cefepime 2 GM in Sodium Chloride 0.9% 100 ML IVPB SCH (21:05)
[2021-10-07] MEDS: Vecuronium Bromide 50 MG in Sodium Chloride 0.9% 250 ML 250 ML IV SCH (00:47)
[2021-10-07] MEDS: Fentanyl CADD 100 ML IV SCH ×3 (01:03→21:02)
[2021-10-07] MEDS: Propofol 1,000 MG/100 ML VIAL IV PRN ×5 (03:11→21:03)
[2021-10-07] MEDS: Piperacillin/Tazobactam 3.375 GM in Dextrose 5% in Water 100 ML IVPB SCH ×3 (05:45→21:02)
[2021-10-07] MEDS: Acetaminophen 650 MG/20.3 ML UDCUP PO SCH ×4 (06:06→23:23)
[2021-10-07] MEDS: E.E.S. 200 MG/5 ML Oral Suspension PER TUBE SCH ×4 (06:06→23:38)
[2021-10-07 06:07] LABS: Hemoglobin 8.2 g/dL (14.0-18.0); Mean Corpuscular HGB CONC 31.3 g/dL (32.0-36.0); Mean Corpuscular Hemoglobin 29.4 pg (27.0-31.0); Mean Corpuscular Volume 93.8 fL (78.0-98.0); Mean Platelet Volume 6.2 fL (7.4-10.4); Platelet Count 180 thou/uL (130-400); RBC Distribution Width 14.2 % (11.5-14.5); Red Blood Cell (RBC) Count 2.79 mill/uL (4.70-6.10); White Blood Cell (WBC) Count 17.6 thou/uL (4.8-10.8)
[2021-10-07] MEDS: Hydrocortisone Sod Succ/PF 100 mg/2 ml Vial IVP SCH ×4 (06:07→23:24)
[2021-10-07] MEDS: Furosemide 20 MG/2 ML VIAL SLOW IVP SCH ×2 (06:07→14:01)
[2021-10-07 06:14] LABS: Anion Gap 12 mmol/L (10-20); BUN (Urea Nitrogen) 22 mg/dL (8.4-25.7); Calc. Creatinine Clearance 150 mL/min (70-130); Calcium 8.8 mg/dL (7.8-10.44); Carbon Dioxide 34 mmol/L (22-29); Chloride 107 mmol/L (98-107); Glucose 141 mg/dL (70-105); Magnesium 1.8 mg/dL (1.6-2.6); Phosphorus 2.4 mg/dL (2.3-4.7); Potassium 3.4 mmol/L (3.5-5.1); Sodium 150 mmol/L (136-145)
[2021-10-07 06:15] LABS: Digoxin 0.88 ng/mL (0.8-2.0)
[2021-10-07 06:31] LABS: Band 40 % (5-11); Eosinophils 1 % (0-10); Lymphocytes 3 % (21-51); MDiff Complete? YES; Neutrophil 56 % (42-75); Nucleated RBC 1 % (0); Toxic Granulation SLIGHT
[2021-10-07 07:13] LABS: Actual Bicarbonate (HCO3a) 31.7 mEq/L (22-28); Base Excess (BEa) 7.6 mEq/L (-2.0 to +3.0); CO2 Tension 42.6 mmHg (35.0-45.0); Calcium, Ionized (arterial) 1.12 mmol/L (1.12-1.30); Carboxyhemoglobin (COHb) 0.9 gm% (0.0-3.0); O2 Tension (PaO2), arterial 60.5 mmHg (80.0-100.0); Potassium - ABG Lab 3.29 mmol/L (3.70-5.30); pH, Arterial 7.49 (7.35-7.45)
[2021-10-07] MEDS: Digoxin 0.5 MG/2 ML AMP SLOW IVP SCH (07:15)
[2021-10-07] MEDS ORDERED: Potassium Chloride 40 MEQ in Premix Bag 1 BAG IVPB SCH (07:30)
[2021-10-07 07:37] LABS: Puncture Site LRA
[2021-10-07] MEDS ORDERED: Magnesium Sulfate 3 GM in Sodium Chloride 0.9% 100 ML IV SCH (08:00)
[2021-10-07] MEDS: Cefepime 2 GM in Sodium Chloride 0.9% 100 ML IVPB SCH (08:27)
[2021-10-07] MEDS: Famotidine/PF 20 mg/2ml Vial SLOW IVP SCH ×2 (08:30→21:04)
[2021-10-07] MEDS ORDERED: Vecuronium 10 MG VIAL ONE (09:16)
[2021-10-07] MEDS ORDERED: Vecuronium 10 MG VIAL IV SCH (10:00)
[2021-10-07] MEDS: Polyethylene Glycol 3350 17 GM Packet PO SCH (10:12)
[2021-10-07] MEDS: Senokot S 8.6-50 MG TAB PO SCH ×2 (10:12→21:41)
[2021-10-07] MEDS: Sodium Chloride 0.9% 1,000 ML IV SCH (12:01)
[2021-10-07] MEDS ORDERED: hydrALAZINE 20 MG/ML VIAL SLOW IVP PRN (12:13)
[2021-10-07] MEDS: Dexmedetomidine 1,000 MCG in Sodium Chloride 0.9% 250 ML 240 ML IVPB SCH (16:31)
[2021-10-07] MEDS: Saccharomyces boulardii 250 MG CAP PER TUBE SCH (21:03)
[2021-10-08] MEDS: Propofol 1,000 MG/100 ML VIAL IV PRN ×4 (01:32→21:45)
[2021-10-08] MEDS: Sodium Chloride 0.9% 1,000 ML IV SCH (02:04)
[2021-10-08] MEDS: Dexmedetomidine 1,000 MCG in Sodium Chloride 0.9% 250 ML 240 ML IVPB SCH ×3 (02:06→22:40)
[2021-10-08 04:43] LABS: Hemoglobin 8.3 g/dL (14.0-18.0); Mean Corpuscular HGB CONC 32.8 g/dL (32.0-36.0); Mean Corpuscular Hemoglobin 31.1 pg (27.0-31.0); Mean Corpuscular Volume 94.6 fL (78.0-98.0); Mean Platelet Volume 6.6 fL (7.4-10.4); Platelet Count 169 thou/uL (130-400); RBC Distribution Width 14.1 % (11.5-14.5); Red Blood Cell (RBC) Count 2.66 mill/uL (4.70-6.10)
[2021-10-08 04:56] LABS: Anion Gap 12 mmol/L (10-20); BUN (Urea Nitrogen) 41 mg/dL (8.4-25.7); Calc. Creatinine Clearance 113 mL/min (70-130); Calcium 8.6 mg/dL (7.8-10.44); Carbon Dioxide 37 mmol/L (22-29); Chloride 106 mmol/L (98-107); Glucose 166 mg/dL (70-105); Magnesium 2.3 mg/dL (1.6-2.6); Potassium 3.5 mmol/L (3.5-5.1); Sodium 151 mmol/L (136-145)
[2021-10-08 05:12] LABS: Band 30 % (5-11); Lymphocytes 2 % (21-51); MDiff Complete? YES; Monocytes 4 % (0-10); Neutrophil 64 % (42-75)
[2021-10-08] MEDS: Acetaminophen 650 MG/20.3 ML UDCUP PO SCH ×4 (05:44→23:27)
[2021-10-08] MEDS: Furosemide 20 MG/2 ML VIAL SLOW IVP SCH (05:45)
[2021-10-08] MEDS: Hydrocortisone Sod Succ/PF 100 mg/2 ml Vial IVP SCH ×4 (05:45→23:28)
[2021-10-08] MEDS: E.E.S. 200 MG/5 ML Oral Suspension PER TUBE SCH ×4 (05:46→23:28)
[2021-10-08] MEDS: Piperacillin/Tazobactam 3.375 GM in Dextrose 5% in Water 100 ML IVPB SCH ×2 (05:49→13:18)
[2021-10-08 07:20] LABS: Actual Bicarbonate (HCO3a) 32.6 mEq/L (22-28); Base Excess (BEa) 7.6 mEq/L (-2.0 to +3.0); CO2 Tension 48.8 mmHg (35.0-45.0); Calcium, Ionized (arterial) 1.08 mmol/L (1.12-1.30); Carboxyhemoglobin (COHb) 0.5 gm% (0.0-3.0); Hemoglobin (Hb) 8.8 g/dL (14.0-18.0); O2 Tension (PaO2), arterial 89.6 mmHg (80.0-100.0); Potassium - ABG Lab 3.21 mmol/L (3.70-5.30); pH, Arterial 7.44 (7.35-7.45)
[2021-10-08 07:24] LABS: Puncture Site RRA
[2021-10-08] MEDS: D5 1/2 NS w/20 mEq KCL 1,000 ML IV SCH ×2 (09:05→17:51)
[2021-10-08] MEDS: Vecuronium Bromide 50 MG in Sodium Chloride 0.9% 250 ML 250 ML IV SCH ×2 (09:06→22:40)
[2021-10-08] MEDS: Famotidine/PF 20 mg/2ml Vial SLOW IVP SCH ×2 (09:07→21:46)
[2021-10-08] MEDS: Digoxin 0.5 MG/2 ML AMP SLOW IVP SCH (09:07)
[2021-10-08] MEDS: Senokot S 8.6-50 MG TAB PO SCH ×2 (09:12→21:46)
[2021-10-08] MEDS: Polyethylene Glycol 3350 17 GM Packet PO SCH (09:12)
[2021-10-08] MEDS: Saccharomyces boulardii 250 MG CAP PER TUBE SCH ×2 (09:13→21:48)
[2021-10-08] MEDS ORDERED: Bisacodyl 10 MG SUPP PR SCH (09:45)
[2021-10-08] MEDS: Fentanyl CADD 100 ML IV SCH ×2 (09:56→23:38)
[2021-10-08 12:07] LABS: SARS-CoV-2 PCR by NAA Not Detected (NotDetected)
[2021-10-08] MEDS ORDERED: MEROPENEM 1 GM/50 ML 1 GM in Premix Bag 1 BAG IVPB SCH ×2 (14:45→23:00)
[2021-10-08 17:02] LABS: Actual Bicarbonate (HCO3a) 34.8 mEq/L (22-28); Base Excess (BEa) 10.7 mEq/L (-2.0 to +3.0); CO2 Tension 44.6 mmHg (35.0-45.0); Hemoglobin (Hb) 9.2 g/dL (14.0-18.0); O2 Tension (PaO2), arterial 59.8 mmHg (80.0-100.0); Potassium - ABG Lab 3.24 mmol/L (3.70-5.30); Puncture Site LRA; pH, Arterial 7.51 (7.35-7.45)
[2021-10-08] MEDS ORDERED: Calcium Chloride 1 GM/10 ML Abboject SYRINGE ONE (18:36)
[2021-10-08] MEDS ORDERED: Calcium Chloride 1 GM/10 ML Abboject SYRINGE IVP SCH (18:45)
[2021-10-08] MEDS: Meropenem 1 GM in Sodium Chloride 0.9% 100 ML IVPB SCH (23:39)
[2021-10-09] MEDS: D5 1/2 NS w/20 mEq KCL 1,000 ML IV SCH ×2 (01:36→08:20)
[2021-10-09 04:52] LABS: Hemoglobin 8.4 g/dL (14.0-18.0); Mean Corpuscular HGB CONC 32.6 g/dL (32.0-36.0); Mean Corpuscular Hemoglobin 30.7 pg (27.0-31.0); Mean Corpuscular Volume 94.3 fL (78.0-98.0); Mean Platelet Volume 6.9 fL (7.4-10.4); Platelet Count 212 thou/uL (130-400); Red Blood Cell (RBC) Count 2.72 mill/uL (4.70-6.10); White Blood Cell (WBC) Count 19.8 thou/uL (4.8-10.8)
[2021-10-09 05:17] LABS: Anion Gap 16 mmol/L (10-20); Carbon Dioxide 33 mmol/L (22-29); Chloride 108 mmol/L (98-107); Potassium 3.5 mmol/L (3.5-5.1); Sodium 153 mmol/L (136-145)
[2021-10-09 05:22] LABS: BUN (Urea Nitrogen) 34 mg/dL (8.4-25.7); Calc. Creatinine Clearance 141 mL/min (70-130); Calcium 8.8 mg/dL (7.8-10.44); Glucose 177 mg/dL (70-105); Magnesium 2.2 mg/dL (1.6-2.6)
[2021-10-09] MEDS: E.E.S. 200 MG/5 ML Oral Suspension PER TUBE SCH ×2 (06:08→11:09)
[2021-10-09] MEDS: Acetaminophen 650 MG/20.3 ML UDCUP PO SCH ×4 (06:10→23:19)
[2021-10-09] MEDS: Hydrocortisone Sod Succ/PF 100 mg/2 ml Vial IVP SCH ×2 (06:11→11:09)
[2021-10-09] MEDS: Propofol 1,000 MG/100 ML VIAL IV PRN ×6 (06:11→23:19)
[2021-10-09 06:41] LABS: Band 16 % (5-11); Lymphocytes 3 % (21-51); MDiff Complete? YES; Monocytes 2 % (0-10); Myelocyte 2 % (0-0); Neutrophil 77 % (42-75)
[2021-10-09 07:23] LABS: Actual Bicarbonate (HCO3a) 32.9 mEq/L (22-28); Base Excess (BEa) 9.5 mEq/L (-2.0 to +3.0); CO2 Tension 39.5 mmHg (35.0-45.0); Calcium, Ionized (arterial) 1.13 mmol/L (1.12-1.30); Carboxyhemoglobin (COHb) 0.2 gm% (0.0-3.0); Hemoglobin (Hb) 8.7 g/dL (14.0-18.0); O2 Tension (PaO2), arterial 92.5 mmHg (80.0-100.0); Potassium - ABG Lab 3.39 mmol/L (3.70-5.30); pH, Arterial 7.54 (7.35-7.45)
[2021-10-09] MEDS: Bisacodyl 10 MG SUPP PR SCH (08:10)
[2021-10-09] MEDS: Digoxin 0.5 MG/2 ML AMP SLOW IVP SCH (08:18)
[2021-10-09] MEDS: Famotidine/PF 20 mg/2ml Vial SLOW IVP SCH ×2 (08:18→20:34)
[2021-10-09] MEDS: Senokot S 8.6-50 MG TAB PO SCH ×2 (08:19→20:32)
[2021-10-09] MEDS: Polyethylene Glycol 3350 17 GM Packet PO SCH (08:19)
[2021-10-09] MEDS: Saccharomyces boulardii 250 MG CAP PER TUBE SCH ×2 (08:19→20:33)
[2021-10-09] MEDS: Meropenem 1 GM in Sodium Chloride 0.9% 100 ML IVPB SCH ×3 (08:19→23:19)
[2021-10-09] MEDS ORDERED: Potassium Phosphate 30 MMOL in Sodium Chloride 0.9% 250 ML 250 ML IVPB SCH (08:45)
[2021-10-09] MEDS ORDERED: D5 1/4 NS w/20 mEq KCL 1,000 ML IV SCH (08:45)
[2021-10-09] MEDS: Dexmedetomidine 1,000 MCG in Sodium Chloride 0.9% 250 ML 240 ML IVPB SCH ×2 (09:16→20:27)
[2021-10-09] MEDS ORDERED: Pregabalin 75 MG CAP PO SCH (10:15)
[2021-10-09] MEDS: Fentanyl CADD 100 ML IV SCH (12:49)
[2021-10-09 13:51] LABS: ALV-art Gradient 250.275 mmHg (0-20); Puncture Site LRA
[2021-10-09 13:56] LABS: Actual Bicarbonate (HCO3a) 31.5 mEq/L (22-28); CO2 Tension 39.4 mmHg (35.0-45.0); Calcium, Ionized (arterial) 1.17 mmol/L (1.12-1.30); Carboxyhemoglobin (COHb) 0.2 gm% (0.0-3.0); Hemoglobin (Hb) 9.2 g/dL (14.0-18.0); Potassium - ABG Lab 3.43 mmol/L (3.70-5.30); pH, Arterial 7.52 (7.35-7.45)
[2021-10-09 13:57] LABS: Puncture Site LRA
[2021-10-09] MEDS ORDERED: Erythromycin 250 MG in Sodium Chloride 0.9% 250 ML 250 ML IVPB SCH ×3 (15:40→18:00)
[2021-10-09] MEDS ORDERED: Bisacodyl 10 MG SUPP PR PRN (15:45)
[2021-10-09] MEDS ORDERED: Bisacodyl 10 MG SUPP PR SCH (16:00)
[2021-10-09] MEDS: Vecuronium Bromide 50 MG in Sodium Chloride 0.9% 250 ML 250 ML IV SCH (16:43)
[2021-10-09] MEDS ORDERED: Vecuronium 10 MG VIAL IV SCH ×2 (17:00)
[2021-10-09] MEDS: Erythromycin 250 MG in Sodium Chloride 0.9% 250 ML 250 ML IVPB SCH ×2 (17:43→22:02)
[2021-10-09] MEDS: Simethicone Chewable 80 MG TAB PER TUBE SCH (20:32)
[2021-10-09] MEDS: Hydrochlorothiazide 25 MG TAB PO SCH (20:33)
[2021-10-09] MEDS: Pregabalin 75 MG CAP PO SCH (20:33)
[2021-10-09] MEDS: Metoclopramide HCl 10 MG/2 ML VIAL IVP SCH (20:34)
[2021-10-10] MEDS: Propofol 1,000 MG/100 ML VIAL IV PRN ×6 (03:13→21:00)
[2021-10-10] MEDS: Vecuronium Bromide 50 MG in Sodium Chloride 0.9% 250 ML 250 ML IV SCH ×2 (03:50→17:12)
[2021-10-10] MEDS: Dexmedetomidine 1,000 MCG in Sodium Chloride 0.9% 250 ML 240 ML IVPB SCH ×3 (03:51→17:12)
[2021-10-10] MEDS: Fentanyl CADD 100 ML IV SCH ×2 (03:51→16:21)
[2021-10-10 04:49] LABS: Band 13 % (5-11); Eosinophils 1 % (0-10); Hemoglobin 6.3 g/dL (14.0-18.0); Lymphocytes 5 % (21-51); MDiff Complete? YES; Mean Corpuscular HGB CONC 32.6 g/dL (32.0-36.0); Mean Corpuscular Hemoglobin 30.6 pg (27.0-31.0); Mean Corpuscular Volume 93.8 fL (78.0-98.0); Mean Platelet Volume 6.8 fL (7.4-10.4); Myelocyte 1 % (0-0); Neutrophil 80 % (42-75); Platelet Count 216 thou/uL (130-400); RBC Distribution Width 13.8 % (11.5-14.5); Red Blood Cell (RBC) Count 2.05 mill/uL (4.70-6.10)
[2021-10-10 04:53] LABS: Anion Gap 10 mmol/L (10-20); BUN (Urea Nitrogen) 32 mg/dL (8.4-25.7); Calc. Creatinine Clearance 167 mL/min (70-130); Calcium 7.9 mg/dL (7.8-10.44); Carbon Dioxide 35 mmol/L (22-29); Chloride 107 mmol/L (98-107); Glucose 133 mg/dL (70-105); Magnesium 2.1 mg/dL (1.6-2.6); Potassium 3.4 mmol/L (3.5-5.1); Sodium 149 mmol/L (136-145)
[2021-10-10] MEDS: Erythromycin 250 MG in Sodium Chloride 0.9% 250 ML 250 ML IVPB SCH ×3 (04:59→17:42)
[2021-10-10] MEDS: Acetaminophen 650 MG/20.3 ML UDCUP PO SCH ×3 (06:19→17:11)
[2021-10-10] MEDS: Metoclopramide HCl 10 MG/2 ML VIAL IVP SCH ×3 (06:20→21:09)
[2021-10-10 07:43] LABS: Actual Bicarbonate (HCO3a) 31.4 mEq/L (22-28); Base Excess (BEa) 10.1 mEq/L (-2.0 to +3.0); CO2 Tension 28.6 mmHg (35.0-45.0); Calcium, Ionized (arterial) 1.07 mmol/L (1.12-1.30); Carboxyhemoglobin (COHb) 0.5 gm% (0.0-3.0); Hemoglobin (Hb) 7.2 g/dL (14.0-18.0); Potassium - ABG Lab 3.15 mmol/L (3.70-5.30)
[2021-10-10 07:46] LABS: O2 Tension (PaO2), arterial 58.8 mmHg (80.0-100.0); pH, Arterial 7.66 (7.35-7.45)
[2021-10-10 07:47] LABS: Puncture Site RB
[2021-10-10] MEDS: Meropenem 1 GM in Sodium Chloride 0.9% 100 ML IVPB SCH ×2 (07:56→16:24)
[2021-10-10] MEDS: Famotidine/PF 20 mg/2ml Vial SLOW IVP SCH ×2 (07:56→20:08)
[2021-10-10] MEDS: Hydrochlorothiazide 25 MG TAB PO SCH ×2 (07:56→20:10)
[2021-10-10] MEDS: Senokot S 8.6-50 MG TAB PO SCH ×2 (07:56→20:10)
[2021-10-10] MEDS: Digoxin 0.5 MG/2 ML AMP SLOW IVP SCH (07:56)
[2021-10-10] MEDS: Bisacodyl 10 MG SUPP PR SCH (07:57)
[2021-10-10] MEDS: Polyethylene Glycol 3350 17 GM Packet PO SCH (07:57)
[2021-10-10] MEDS: Simethicone Chewable 80 MG TAB PER TUBE SCH ×2 (07:57→20:10)
[2021-10-10] MEDS: Saccharomyces boulardii 250 MG CAP PER TUBE SCH ×2 (07:57→20:10)
[2021-10-10] MEDS ORDERED: Calcium Chloride 1 GM/10 ML Abboject SYRINGE IVP SCH (08:00)
[2021-10-10] MEDS: Pregabalin 75 MG CAP PO SCH ×2 (08:01→20:08)
[2021-10-10 08:03] LABS: Mean Corpuscular HGB CONC 32.9 g/dL (32.0-36.0); Mean Corpuscular Hemoglobin 30.9 pg (27.0-31.0); Mean Corpuscular Volume 93.9 fL (78.0-98.0); Mean Platelet Volume 6.9 fL (7.4-10.4); Platelet Count 179 thou/uL (130-400); RBC Distribution Width 13.8 % (11.5-14.5); Red Blood Cell (RBC) Count 2.27 mill/uL (4.70-6.10); White Blood Cell (WBC) Count 12.3 thou/uL (4.8-10.8)
[2021-10-10 08:31] LABS: Anisocytosis SLIGHT = 6-15 cells (100X) (0-5/hpf); Band 12 % (5-11); Eosinophils 1 % (0-10); Hypochromia SLIGHT = 6-15 cells (100X) (0-5/hpf); Lymphocytes 4 % (21-51); MDiff Complete? YES; Monocytes 4 % (0-10); Neutrophil 79 % (42-75); Nucleated RBC 1 % (0); Platelet Morphology Comment Appears Adequate; Polychromasia SLIGHT = 2-3 cells (100X) (0-2/hpf)
[2021-10-10 11:42] LABS: Actual Bicarbonate (HCO3a) 33.3 mEq/L (22-28); Base Excess (BEa) 9.8 mEq/L (-2.0 to +3.0); CO2 Tension 40.3 mmHg (35.0-45.0); Calcium, Ionized (arterial) 1.14 mmol/L (1.12-1.30); Carboxyhemoglobin (COHb) 0.6 gm% (0.0-3.0); Hemoglobin (Hb) 8.2 g/dL (14.0-18.0); O2 Tension (PaO2), arterial 74.1 mmHg (80.0-100.0); Potassium - ABG Lab 3.63 mmol/L (3.70-5.30); pH, Arterial 7.54 (7.35-7.45)
[2021-10-10 11:43] LABS: ALV-art Gradient 267.675 mmHg (0-20); Puncture Site LBR
[2021-10-10] MEDS ORDERED: Fentanyl CADD 100 ML ONE (15:16)
[2021-10-11] MEDS: Erythromycin 250 MG in Sodium Chloride 0.9% 250 ML 250 ML IVPB SCH (00:05)
[2021-10-11] MEDS: Meropenem 1 GM in Sodium Chloride 0.9% 100 ML IVPB SCH ×4 (00:05→23:12)
[2021-10-11] MEDS: Acetaminophen 650 MG/20.3 ML UDCUP PO SCH ×5 (00:06→23:11)
[2021-10-11] MEDS: Dexmedetomidine 1,000 MCG in Sodium Chloride 0.9% 250 ML 240 ML IVPB SCH ×4 (00:06→22:02)
[2021-10-11 04:29] LABS: Band 11 % (5-11); Eosinophils 2 % (0-10); Hemoglobin 7.4 g/dL (14.0-18.0); Hypochromia SLIGHT = 6-15 cells (100X) (0-5/hpf); Lymphocytes 5 % (21-51); MDiff Complete? YES; Mean Corpuscular HGB CONC 34.1 g/dL (32.0-36.0); Mean Corpuscular Hemoglobin 31.7 pg (27.0-31.0); Mean Platelet Volume 6.8 fL (7.4-10.4); Monocytes 3 % (0-10); Neutrophil 79 % (42-75); Platelet Count 199 thou/uL (130-400); Platelet Morphology Comment Appears Adequate; RBC Distribution Width 13.8 % (11.5-14.5); Red Blood Cell (RBC) Count 2.33 mill/uL (4.70-6.10); White Blood Cell (WBC) Count 13.1 thou/uL (4.8-10.8)
[2021-10-11 04:44] LABS: Digoxin 0.82 ng/mL (0.8-2.0)
[2021-10-11 05:25] LABS: Anion Gap 12 mmol/L (10-20); BUN (Urea Nitrogen) 28 mg/dL (8.4-25.7); Calc. Creatinine Clearance 164 mL/min (70-130); Calcium 7.5 mg/dL (7.8-10.44); Carbon Dioxide 33 mmol/L (22-29); Chloride 104 mmol/L (98-107); Glucose 130 mg/dL (70-105); Magnesium 1.9 mg/dL (1.6-2.6); Phosphorus 3.3 mg/dL (2.3-4.7); Potassium 3.5 mmol/L (3.5-5.1); Sodium 145 mmol/L (136-145)
[2021-10-11] MEDS: Propofol 1,000 MG/100 ML VIAL IV PRN ×2 (05:53→12:33)
[2021-10-11] MEDS ORDERED: Magnesium Sulfate 3 GM in Sodium Chloride 0.9% 100 ML IV SCH (07:45)
[2021-10-11] MEDS: Simethicone Chewable 80 MG TAB PER TUBE SCH ×2 (08:18→20:23)
[2021-10-11] MEDS: Hydrochlorothiazide 25 MG TAB PO SCH ×2 (08:18→20:23)
[2021-10-11] MEDS: Digoxin 0.5 MG/2 ML AMP SLOW IVP SCH (08:19)
[2021-10-11] MEDS: Saccharomyces boulardii 250 MG CAP PER TUBE SCH ×2 (08:19→20:22)
[2021-10-11] MEDS: Bisacodyl 10 MG SUPP PR SCH (08:19)
[2021-10-11] MEDS: Senokot S 8.6-50 MG TAB PO SCH ×2 (08:19→20:23)
[2021-10-11] MEDS: Polyethylene Glycol 3350 17 GM Packet PO SCH (08:20)
[2021-10-11] MEDS: Pregabalin 75 MG CAP PO SCH ×2 (08:24→20:22)
[2021-10-11] MEDS: Famotidine/PF 20 mg/2ml Vial SLOW IVP SCH ×2 (08:25→20:22)
[2021-10-11] MEDS ORDERED: Potassium Chloride 40 MEQ, Magnesium Sulfate 3 GM in Sodium Chloride 0.9% 250 ML 250 ML IVPB SCH (08:30)
[2021-10-11] MEDS ORDERED: Furosemide 40 MG/4 ML VIAL SLOW IVP SCH (09:45)
[2021-10-11] MEDS: Fentanyl CADD 100 ML IV SCH (10:19)
[2021-10-11 15:17] LABS: Anion Gap 10 mmol/L (10-20); BUN (Urea Nitrogen) 26 mg/dL (8.4-25.7); Calc. Creatinine Clearance 170 mL/min (70-130); Calcium 7.9 mg/dL (7.8-10.44); Carbon Dioxide 34 mmol/L (22-29); Chloride 102 mmol/L (98-107); Glucose 141 mg/dL (70-105); Magnesium 2.3 mg/dL (1.6-2.6); Phosphorus 2.7 mg/dL (2.3-4.7); Potassium 3.4 mmol/L (3.5-5.1); Sodium 143 mmol/L (136-145)
[2021-10-11] MEDS ORDERED: Furosemide 20 MG/2 ML VIAL SLOW IVP SCH (16:00)
[2021-10-11] MEDS: Furosemide 20 MG/2 ML VIAL SLOW IVP SCH ×2 (16:01→23:12)
[2021-10-11] MEDS ORDERED: Ibuprofen 200 MG TAB PO PRN (21:23)
[2021-10-12] MEDS: Fentanyl CADD 100 ML IV SCH ×3 (01:20→18:47)
[2021-10-12 04:34] LABS: #Eosinphils 0.1 thou/uL (0.0-0.7); #Monocytes 0.6 thou/uL (0.11-0.59); #Neutrophils 13.9 thou/uL (1.40-6.50); %Eosinophils 0.6 % (0.0-10.0); %Lymphocytes 6.3 % (21.0-51.0); %Monocytes 3.7 % (0.0-10.0); %Neutrophils 89.3 % (42.0-75.0); Hemoglobin 8.8 g/dL (14.0-18.0); Mean Corpuscular HGB CONC 33.7 g/dL (32.0-36.0); Mean Corpuscular Hemoglobin 31.3 pg (27.0-31.0); Mean Corpuscular Volume 92.7 fL (78.0-98.0); Mean Platelet Volume 6.6 fL (7.4-10.4); Platelet Count 286 thou/uL (130-400); RBC Distribution Width 13.9 % (11.5-14.5); Red Blood Cell (RBC) Count 2.81 mill/uL (4.70-6.10); White Blood Cell (WBC) Count 15.6 thou/uL (4.8-10.8)
[2021-10-12 04:58] LABS: BUN (Urea Nitrogen) 25 mg/dL (8.4-25.7); Calc. Creatinine Clearance 183 mL/min (70-130); Calcium 8.1 mg/dL (7.8-10.44); Glucose 118 mg/dL (70-105); Magnesium 2.1 mg/dL (1.6-2.6); Phosphorus 2.6 mg/dL (2.3-4.7)
[2021-10-12 05:07] LABS: Anion Gap 10 mmol/L (10-20); Carbon Dioxide 37 mmol/L (22-29); Chloride 98 mmol/L (98-107); Potassium 3.2 mmol/L (3.5-5.1); Sodium 142 mmol/L (136-145)
[2021-10-12] MEDS: Acetaminophen 650 MG/20.3 ML UDCUP PO SCH ×4 (05:58→23:49)
[2021-10-12] MEDS: Dexmedetomidine 1,000 MCG in Sodium Chloride 0.9% 250 ML 240 ML IVPB SCH ×4 (06:03→18:46)
[2021-10-12] MEDS ORDERED: Vecuronium 10 MG VIAL IVP PRN (07:00)
[2021-10-12] MEDS ORDERED: Midazolam HCl 2 mg/2 ml Vial SLOW IVP PRN (07:00)
[2021-10-12] MEDS ORDERED: Fentanyl 100 MCG/2 ML VIAL SLOW IVP PRN (07:00)
[2021-10-12] MEDS: Furosemide 20 MG/2 ML VIAL SLOW IVP SCH (08:43)
[2021-10-12] MEDS: Famotidine/PF 20 mg/2ml Vial SLOW IVP SCH ×2 (08:43→21:58)
[2021-10-12] MEDS: Meropenem 1 GM in Sodium Chloride 0.9% 100 ML IVPB SCH ×3 (08:44→23:49)
[2021-10-12] MEDS: Digoxin 0.5 MG/2 ML AMP SLOW IVP SCH (08:44)
[2021-10-12] MEDS: Propofol 1,000 MG/100 ML VIAL IV PRN (08:44)
[2021-10-12] MEDS: Bisacodyl 10 MG SUPP PR SCH (09:06)
[2021-10-12] MEDS: Pregabalin 75 MG CAP PO SCH ×2 (10:25→22:10)
[2021-10-12] MEDS: Hydrochlorothiazide 25 MG TAB PO SCH (10:25)
[2021-10-12] MEDS: Polyethylene Glycol 3350 17 GM Packet PO SCH (10:25)
[2021-10-12] MEDS: Saccharomyces boulardii 250 MG CAP PER TUBE SCH ×2 (10:25→21:58)
[2021-10-12] MEDS: Simethicone Chewable 80 MG TAB PER TUBE SCH ×2 (10:26→21:59)
[2021-10-12] MEDS: Senokot S 8.6-50 MG TAB PO SCH ×2 (10:26→21:59)
[2021-10-12] MEDS ORDERED: Lidocaine 1% w/Epinephrine 1:100K 20 ML VIAL ONE (12:03)
[2021-10-12 15:20] LABS: Anion Gap 11 mmol/L (10-20); BUN (Urea Nitrogen) 25 mg/dL (8.4-25.7); Calc. Creatinine Clearance 172 mL/min (70-130); Calcium 7.9 mg/dL (7.8-10.44); Carbon Dioxide 36 mmol/L (22-29); Chloride 98 mmol/L (98-107); Glucose 117 mg/dL (70-105); Magnesium 1.9 mg/dL (1.6-2.6); Potassium 3.9 mmol/L (3.5-5.1); Sodium 141 mmol/L (136-145)
[2021-10-12] MEDS: Ferrous Sulfate 325 MG TAB PO SCH (16:36)
[2021-10-12 17:30] LABS: Actual Bicarbonate (HCO3a) 34.5 mEq/L (22-28); Base Excess (BEa) 10.9 mEq/L (-2.0 to +3.0); CO2 Tension 41.9 mmHg (35.0-45.0); Calcium, Ionized (arterial) 1.08 mmol/L (1.12-1.30); Carboxyhemoglobin (COHb) 0.8 gm% (0.0-3.0); Hemoglobin (Hb) 9.9 g/dL (14.0-18.0); O2 Tension (PaO2), arterial 68.6 mmHg (80.0-100.0); Potassium - ABG Lab 3.65 mmol/L (3.70-5.30); pH, Arterial 7.53 (7.35-7.45)
[2021-10-12 17:32] LABS: Puncture Site LRA
[2021-10-12 17:33] LABS: ALV-art Gradient 164.225 mmHg (0-20)
[2021-10-12] MEDS ORDERED: Calcium Chloride 1 GM/10 ML Abboject SYRINGE IVP SCH (19:00)
[2021-10-12] MEDS: Ascorbic Acid 500 mg Chewable Tablet PO SCH (21:58)
[2021-10-13] MEDS: Dexmedetomidine 1,000 MCG in Sodium Chloride 0.9% 250 ML 240 ML IVPB SCH ×3 (02:30→18:26)
[2021-10-13] MEDS: Acetaminophen 650 MG/20.3 ML UDCUP PO SCH ×3 (05:59→17:00)
[2021-10-13] MEDS: Famotidine/PF 20 mg/2ml Vial SLOW IVP SCH ×2 (08:41→21:30)
[2021-10-13] MEDS: Simethicone Chewable 80 MG TAB PER TUBE SCH ×2 (08:42→22:39)
[2021-10-13] MEDS: Ferrous Sulfate 325 MG TAB PO SCH ×2 (08:44→15:14)
[2021-10-13] MEDS: Polyethylene Glycol 3350 17 GM Packet PO SCH (08:44)
[2021-10-13] MEDS: Bisacodyl 10 MG SUPP PR SCH (08:44)
[2021-10-13] MEDS: Ascorbic Acid 500 mg Chewable Tablet PO SCH ×2 (08:45→22:41)
[2021-10-13] MEDS: Saccharomyces boulardii 250 MG CAP PER TUBE SCH ×2 (08:45→22:41)
[2021-10-13] MEDS: Lisinopril 20 MG TAB PO SCH (08:45)
[2021-10-13] MEDS: Senokot S 8.6-50 MG TAB PO SCH ×2 (08:45→22:54)
[2021-10-13] MEDS: Meropenem 1 GM in Sodium Chloride 0.9% 100 ML IVPB SCH ×2 (09:12→15:14)
[2021-10-13] MEDS: Pregabalin 75 MG CAP PO SCH ×2 (09:12→22:41)
[2021-10-13 14:39] LABS: Actual Bicarbonate (HCO3a) 29.5 mEq/L (22-28); CO2 Tension 38.5 mmHg (35.0-45.0); Calcium, Ionized (arterial) 1.11 mmol/L (1.12-1.30); Carboxyhemoglobin (COHb) 1.1 gm% (0.0-3.0); Hemoglobin (Hb) 10.3 g/dL (14.0-18.0); O2 Tension (PaO2), arterial 76.6 mmHg (80.0-100.0); Potassium - ABG Lab 3.69 mmol/L (3.70-5.30)
[2021-10-13] MEDS: Neostigmine 0.5 MG in Syringe 0 ML SC SCH ×2 (15:10→22:52)
[2021-10-13] MEDS: Enoxaparin Sodium 30 MG/0.3 ML SYRINGE SC SCH (15:35)
[2021-10-13 15:38] LABS: ALV-art Gradient 160.475 mmHg (0-20); Puncture Site LRA
[2021-10-13] MEDS ORDERED: Enoxaparin Sodium 30 MG/0.3 ML SYRINGE SC SCH (16:00)
[2021-10-13] MEDS: Fentanyl CADD 100 ML IV SCH (16:21)
[2021-10-14] MEDS: Acetaminophen 650 MG/20.3 ML UDCUP PO SCH ×4 (00:13→17:16)
[2021-10-14] MEDS: Meropenem 1 GM in Sodium Chloride 0.9% 100 ML IVPB SCH ×3 (00:14→16:10)
[2021-10-14] MEDS: Neostigmine 0.5 MG in Syringe 0 ML SC SCH ×4 (03:00→21:59)
[2021-10-14 05:03] LABS: Band 6 % (5-11); Eosinophils 1 % (0-10); Hemoglobin 9.1 g/dL (14.0-18.0); Hypochromia SLIGHT = 6-15 cells (100X) (0-5/hpf); Lymphocytes 3 % (21-51); MDiff Complete? YES; Mean Corpuscular Hemoglobin 30.5 pg (27.0-31.0); Mean Corpuscular Volume 92.4 fL (78.0-98.0); Mean Platelet Volume 6.3 fL (7.4-10.4); Monocytes 7 % (0-10); Neutrophil 83 % (42-75); Platelet Count 557 thou/uL (130-400); Platelet Morphology Comment Appears Increased; RBC Distribution Width 13.3 % (11.5-14.5); Red Blood Cell (RBC) Count 2.98 mill/uL (4.70-6.10)
[2021-10-14 05:16] LABS: Anion Gap 10 mmol/L (10-20); BUN (Urea Nitrogen) 24 mg/dL (8.4-25.7); Calc. Creatinine Clearance 198 mL/min (70-130); Calcium 8.1 mg/dL (7.8-10.44); Carbon Dioxide 33 mmol/L (22-29); Chloride 101 mmol/L (98-107); Glucose 125 mg/dL (70-105); Phosphorus 2.5 mg/dL (2.3-4.7); Potassium 3.6 mmol/L (3.5-5.1); Sodium 140 mmol/L (136-145)
[2021-10-14] MEDS ORDERED: Potassium Phosphate 30 MMOL in Sodium Chloride 0.9% 250 ML 250 ML IVPB SCH (07:00)
[2021-10-14] MEDS: Polyethylene Glycol 3350 17 GM Packet PO SCH (08:53)
[2021-10-14] MEDS: Lisinopril 20 MG TAB PO SCH (08:53)
[2021-10-14] MEDS: Enoxaparin Sodium 30 MG/0.3 ML SYRINGE SC SCH ×2 (08:53→21:57)
[2021-10-14] MEDS: Bisacodyl 10 MG SUPP PR SCH (08:54)
[2021-10-14] MEDS: Ferrous Sulfate 325 MG TAB PO SCH ×2 (08:54→16:10)
[2021-10-14] MEDS: Ascorbic Acid 500 mg Chewable Tablet PO SCH ×2 (08:54→21:57)
[2021-10-14] MEDS: Senokot S 8.6-50 MG TAB PO SCH ×2 (08:54→21:58)
[2021-10-14] MEDS: Famotidine/PF 20 mg/2ml Vial SLOW IVP SCH ×2 (08:54→21:57)
[2021-10-14] MEDS: Saccharomyces boulardii 250 MG CAP PER TUBE SCH ×2 (08:54→21:58)
[2021-10-14] MEDS: Simethicone Chewable 80 MG TAB PER TUBE SCH ×2 (08:54→21:58)
[2021-10-14] MEDS: Pregabalin 75 MG CAP PO SCH ×2 (09:54→21:57)
[2021-10-14] MEDS: Ondansetron PF 4 MG/2 ML Vial IVP PRN ×2 (11:41→22:01)
[2021-10-14] MEDS: Dexmedetomidine 1,000 MCG in Sodium Chloride 0.9% 250 ML 240 ML IVPB SCH (12:51)
[2021-10-14] MEDS: Fentanyl CADD 100 ML IV SCH (22:01)
[2021-10-15] MEDS: Meropenem 1 GM in Sodium Chloride 0.9% 100 ML IVPB SCH ×4 (00:20→23:53)
[2021-10-15] MEDS: Acetaminophen 650 MG/20.3 ML UDCUP PO SCH ×5 (00:20→23:52)
[2021-10-15] MEDS: Neostigmine 0.5 MG in Syringe 0 ML SC SCH (04:27)
[2021-10-15 04:41] LABS: #Eosinphils 0.1 thou/uL (0.0-0.7); #Lymphocytes 1.3 thou/uL (1.20-3.40); #Monocytes 0.9 thou/uL (0.11-0.59); %Basophils 0.3 % (0.0-1.0); %Eosinophils 0.8 % (0.0-10.0); %Lymphocytes 12.4 % (21.0-51.0); %Monocytes 8.8 % (0.0-10.0); %Neutrophils 77.8 % (42.0-75.0); Hemoglobin 8.3 g/dL (14.0-18.0); Mean Corpuscular HGB CONC 32.9 g/dL (32.0-36.0); Mean Corpuscular Hemoglobin 30.7 pg (27.0-31.0); Mean Corpuscular Volume 93.3 fL (78.0-98.0); Mean Platelet Volume 6.1 fL (7.4-10.4); Platelet Count 527 thou/uL (130-400); RBC Distribution Width 13.2 % (11.5-14.5); Red Blood Cell (RBC) Count 2.72 mill/uL (4.70-6.10); White Blood Cell (WBC) Count 10.3 thou/uL (4.8-10.8)
[2021-10-15 04:54] LABS: Anion Gap 9 mmol/L (10-20); BUN (Urea Nitrogen) 22 mg/dL (8.4-25.7); Calc. Creatinine Clearance 198 mL/min (70-130); Calcium 7.8 mg/dL (7.8-10.44); Carbon Dioxide 31 mmol/L (22-29); Chloride 103 mmol/L (98-107); Glucose 129 mg/dL (70-105); Phosphorus 2.6 mg/dL (2.3-4.7); Potassium 3.7 mmol/L (3.5-5.1); Sodium 139 mmol/L (136-145)
[2021-10-15] MEDS: Ondansetron PF 4 MG/2 ML Vial IVP PRN (05:25)
[2021-10-15 07:44] LABS: Actual Bicarbonate (HCO3a) 31.2 mEq/L (22-28); Base Excess (BEa) 6.3 mEq/L (-2.0 to +3.0); CO2 Tension 46.4 mmHg (35.0-45.0); Calcium, Ionized (arterial) 1.14 mmol/L (1.12-1.30); Carboxyhemoglobin (COHb) 0.7 gm% (0.0-3.0); Hemoglobin (Hb) 10.9 g/dL (14.0-18.0); O2 Tension (PaO2), arterial 69.4 mmHg (80.0-100.0); Potassium - ABG Lab 3.98 mmol/L (3.70-5.30); Puncture Site RRA; pH, Arterial 7.45 (7.35-7.45)
[2021-10-15] MEDS: Enoxaparin Sodium 30 MG/0.3 ML SYRINGE SC SCH ×2 (08:58→20:26)
[2021-10-15] MEDS: Polyethylene Glycol 3350 17 GM Packet PO SCH (08:58)
[2021-10-15] MEDS: Saccharomyces boulardii 250 MG CAP PER TUBE SCH ×2 (08:59→20:26)
[2021-10-15] MEDS: Ferrous Sulfate 325 MG TAB PO SCH ×2 (08:59→16:42)
[2021-10-15] MEDS: Simethicone Chewable 80 MG TAB PER TUBE SCH ×2 (08:59→20:26)
[2021-10-15] MEDS: Senokot S 8.6-50 MG TAB PO SCH ×2 (08:59→20:26)
[2021-10-15] MEDS: Lisinopril 20 MG TAB PO SCH (08:59)
[2021-10-15] MEDS: Famotidine/PF 20 mg/2ml Vial SLOW IVP SCH ×2 (09:00→20:26)
[2021-10-15] MEDS: Ascorbic Acid 500 mg Chewable Tablet PO SCH ×2 (09:00→20:26)
[2021-10-15] MEDS: Bisacodyl 10 MG SUPP PR SCH (09:01)
[2021-10-15] MEDS: Pregabalin 75 MG CAP PO SCH ×2 (09:04→20:26)
[2021-10-15] MEDS ORDERED: HYDROcodone/Acetaminophen 7.5/325 mg Tablet PO PRN (11:43)
[2021-10-15] MEDS ORDERED: Morphine 4 MG/ML VIAL SLOW IVP PRN (11:48)
[2021-10-15] MEDS: HYDROcodone/Acetaminophen 7.5/325 mg Tablet PO SCH ×3 (12:50→23:53)
[2021-10-15] MEDS: cloNIDine 0.1 MG TAB PO SCH ×3 (12:51→23:55)
[2021-10-15] MEDS ORDERED: Metoclopramide HCl 10 MG/2 ML VIAL IVP SCH (14:00)
[2021-10-16 04:52] LABS: Band 6 % (5-11); Hemoglobin 8.3 g/dL (14.0-18.0); Hypochromia SLIGHT = 6-15 cells (100X) (0-5/hpf); Lymphocytes 18 % (21-51); MDiff Complete? YES; Mean Corpuscular Hemoglobin 30.8 pg (27.0-31.0); Mean Corpuscular Volume 93.3 fL (78.0-98.0); Mean Platelet Volume 5.7 fL (7.4-10.4); Monocytes 7 % (0-10); Neutrophil 68 % (42-75); Platelet Count 688 thou/uL (130-400); Platelet Morphology Comment Appears Increased; RBC Distribution Width 13.5 % (11.5-14.5); Reactive Lymphocytes 1 % (0-10); Red Blood Cell (RBC) Count 2.69 mill/uL (4.70-6.10); White Blood Cell (WBC) Count 11.8 thou/uL (4.8-10.8)
[2021-10-16 04:56] LABS: Anion Gap 10 mmol/L (10-20); BUN (Urea Nitrogen) 17 mg/dL (8.4-25.7); Calc. Creatinine Clearance 209 mL/min (70-130); Calcium 8.3 mg/dL (7.8-10.44); Carbon Dioxide 32 mmol/L (22-29); Chloride 101 mmol/L (98-107); Glucose 122 mg/dL (70-105); Magnesium 2.1 mg/dL (1.6-2.6); Phosphorus 2.9 mg/dL (2.3-4.7); Potassium 4.2 mmol/L (3.5-5.1); Sodium 139 mmol/L (136-145)
[2021-10-16] MEDS: HYDROcodone/Acetaminophen 7.5/325 mg Tablet PO SCH ×4 (05:55→23:51)
[2021-10-16] MEDS: cloNIDine 0.1 MG TAB PO SCH ×4 (05:57→23:51)
[2021-10-16] MEDS: Acetaminophen 650 MG/20.3 ML UDCUP PO SCH ×4 (05:57→23:51)
[2021-10-16] MEDS ORDERED: Bisacodyl 10 MG SUPP PR PRN (08:45)
[2021-10-16] MEDS: Senokot S 8.6-50 MG TAB PO SCH ×2 (09:08→20:42)
[2021-10-16] MEDS: Ascorbic Acid 500 mg Chewable Tablet PO SCH ×2 (09:08→20:42)
[2021-10-16] MEDS: Famotidine 20 MG TAB PO SCH ×2 (09:08→20:42)
[2021-10-16] MEDS: Meropenem 1 GM in Sodium Chloride 0.9% 100 ML IVPB SCH ×3 (09:08→23:52)
[2021-10-16] MEDS: Simethicone Chewable 80 MG TAB PER TUBE SCH ×2 (09:08→20:42)
[2021-10-16] MEDS: Enoxaparin Sodium 30 MG/0.3 ML SYRINGE SC SCH ×2 (09:08→20:42)
[2021-10-16] MEDS: Ferrous Sulfate 325 MG TAB PO SCH ×2 (09:08→15:42)
[2021-10-16] MEDS: Saccharomyces boulardii 250 MG CAP PER TUBE SCH ×2 (09:09→20:42)
[2021-10-16] MEDS: Pregabalin 75 MG CAP PO SCH ×2 (09:13→20:42)
[2021-10-16] MEDS: Polyethylene Glycol 3350 17 GM Packet PO SCH (09:13)
[2021-10-16] MEDS: Ondansetron PF 4 MG/2 ML Vial IVP PRN (12:11)
[2021-10-17 04:53] LABS: #Basophils 0.1 thou/uL (0.0-0.2); #Eosinphils 0.1 thou/uL (0.0-0.7); #Lymphocytes 1.4 thou/uL (1.20-3.40); #Neutrophils 5.7 thou/uL (1.40-6.50); %Basophils 0.6 % (0.0-1.0); %Eosinophils 1.3 % (0.0-10.0); %Lymphocytes 17.2 % (21.0-51.0); %Monocytes 11.7 % (0.0-10.0); %Neutrophils 69.2 % (42.0-75.0); Hemoglobin 9.1 g/dL (14.0-18.0); Mean Corpuscular HGB CONC 32.2 g/dL (32.0-36.0); Mean Corpuscular Hemoglobin 30.1 pg (27.0-31.0); Mean Corpuscular Volume 93.4 fL (78.0-98.0); Mean Platelet Volume 6.1 fL (7.4-10.4); Platelet Count 609 thou/uL (130-400); RBC Distribution Width 13.5 % (11.5-14.5); White Blood Cell (WBC) Count 8.2 thou/uL (4.8-10.8)
[2021-10-17] MEDS: HYDROcodone/Acetaminophen 7.5/325 mg Tablet PO SCH ×4 (06:04→23:34)
[2021-10-17] MEDS: Acetaminophen 650 MG/20.3 ML UDCUP PO SCH ×4 (06:04→23:33)
[2021-10-17] MEDS: cloNIDine 0.1 MG TAB PO SCH ×4 (06:05→23:33)
[2021-10-17] MEDS ORDERED: Sodium Chloride 0.9% 1,000 ML IV SCH (08:30)
[2021-10-17] MEDS: Enoxaparin Sodium 30 MG/0.3 ML SYRINGE SC SCH ×2 (08:50→20:01)
[2021-10-17] MEDS: Meropenem 1 GM in Sodium Chloride 0.9% 100 ML IVPB SCH ×3 (08:50→23:33)
[2021-10-17] MEDS: Losartan 25 MG TAB PO SCH (08:51)
[2021-10-17] MEDS: Ascorbic Acid 500 mg Chewable Tablet PO SCH ×2 (08:51→20:00)
[2021-10-17] MEDS: Simethicone Chewable 80 MG TAB PER TUBE SCH ×2 (08:51→20:00)
[2021-10-17] MEDS: Senokot S 8.6-50 MG TAB PO SCH ×2 (08:51→20:00)
[2021-10-17] MEDS: Saccharomyces boulardii 250 MG CAP PER TUBE SCH ×2 (08:51→20:00)
[2021-10-17] MEDS: Pregabalin 75 MG CAP PO SCH ×2 (08:52→20:00)
[2021-10-17] MEDS: Ferrous Sulfate 325 MG TAB PO SCH ×3 (08:52→20:00)
[2021-10-17] MEDS: Famotidine 20 MG TAB PO SCH ×2 (08:52→20:01)
[2021-10-17] MEDS: Amlodipine 5 MG TAB PO SCH (08:52)
[2021-10-17] MEDS: Polyethylene Glycol 3350 17 GM Packet PO SCH (08:53)
[2021-10-18] MEDS ORDERED: diphenhydrAMINE 12.5 MG/5 ML UDCUP PO PRN (01:04)
[2021-10-18] MEDS ORDERED: Melatonin 3 MG TAB PO PRN (01:05)
[2021-10-18] MEDS: HYDROcodone/Acetaminophen 7.5/325 mg Tablet PO SCH (05:33)
[2021-10-18] MEDS: Acetaminophen 650 MG/20.3 ML UDCUP PO SCH (05:33)
[2021-10-18] MEDS: cloNIDine 0.1 MG TAB PO SCH (05:34)
[2021-10-18] MEDS: Meropenem 1 GM in Sodium Chloride 0.9% 100 ML IVPB SCH (08:11)
[2021-10-18] MEDS: Enoxaparin Sodium 30 MG/0.3 ML SYRINGE SC SCH (08:12)
[2021-10-18] MEDS: Ferrous Sulfate 325 MG TAB PO SCH (08:12)
[2021-10-18] MEDS: Losartan 25 MG TAB PO SCH (08:12)
[2021-10-18] MEDS: Ascorbic Acid 500 mg Chewable Tablet PO SCH (08:12)
[2021-10-18] MEDS: Saccharomyces boulardii 250 MG CAP PER TUBE SCH (08:12)
[2021-10-18] MEDS: Polyethylene Glycol 3350 17 GM Packet PO SCH (08:13)
[2021-10-18] MEDS: Amlodipine 5 MG TAB PO SCH (08:13)
[2021-10-18] MEDS: Famotidine 20 MG TAB PO SCH (08:13)
[2021-10-18] MEDS: Senokot S 8.6-50 MG TAB PO SCH (08:14)
[2021-10-18] MEDS: Simethicone Chewable 80 MG TAB PER TUBE SCH (08:14)
[2021-10-18] MEDS ORDERED: Lorazepam 2 MG/ML VIAL SLOW IVP SCH (08:45)
== END 2021-10-18 10:10 | DRG 4 ==
LOC: EDBD 16:07 → ERS 16:07 → CCU 18:03
PROVIDERS: ADMIT Specialist; ATTEND Surgery
PROC: 05H533Z Insertion of Infusion Device into Right Subclavian Vein, Percutaneous Approach (ICD-10-PCS; principal; 2021-09-30)
PROC: 0BJ08ZZ Inspection of Tracheobronchial Tree, Via Natural or Artificial Opening Endoscopic (ICD-10-PCS; 2021-09-30)
PROC: 0BJ08ZZ Inspection of Tracheobronchial Tree, Via Natural or Artificial Opening Endoscopic (ICD-10-PCS; 2021-09-30)
PROC: 5A1955Z Respiratory Ventilation, Greater than 96 Consecutive Hours (ICD-10-PCS; 2021-09-30)
PROC: 0BH18EZ Insertion of Endotracheal Airway into Trachea, Via Natural or Artificial Opening Endoscopic (ICD-10-PCS; 2021-09-30)
PROC: 30233L1 Transfusion of Nonautologous Fresh Plasma into Peripheral Vein, Percutaneous Approach (ICD-10-PCS; 2021-09-30)
PROC: 30233K1 Transfusion of Nonautologous Frozen Plasma into Peripheral Vein, Percutaneous Approach (ICD-10-PCS; 2021-09-30)
PROC: 30233N1 Transfusion of Nonautologous Red Blood Cells into Peripheral Vein, Percutaneous Approach (ICD-10-PCS; 2021-10-01)
PROC: 0D9W4ZZ Drainage of Peritoneum, Percutaneous Endoscopic Approach (ICD-10-PCS; 2021-10-02)
PROC: 3E033XZ Introduction of Vasopressor into Peripheral Vein, Percutaneous Approach (ICD-10-PCS; 2021-10-02)
PROC: 02HV33Z Insertion of Infusion Device into Superior Vena Cava, Percutaneous Approach (ICD-10-PCS; 2021-10-04)
PROC: 0B110F4 Bypass Trachea to Cutaneous with Tracheostomy Device, Open Approach (ICD-10-PCS; 2021-10-12)
PROC: 0DH63UZ Insertion of Feeding Device into Stomach, Percutaneous Approach (ICD-10-PCS; 2021-10-12)
PROC: 5A09357 Assistance with Respiratory Ventilation, Less than 24 Consecutive Hours, Continuous Positive Airway Pressure (ICD-10-PCS; 2021-10-15)
DX: S06.5X9A Traumatic subdural hemorrhage with loss of consciousness of unspecified duration, initial encounter (principal); S27.2XXA Traumatic hemopneumothorax, initial encounter; S32.402A Unspecified fracture of left acetabulum, initial encounter for closed fracture; T79.4XXA Traumatic shock, initial encounter; S06.A0XA Traumatic brain compression without herniation, initial encounter; J69.0 Pneumonitis due to inhalation of food and vomit; J80 Acute respiratory distress syndrome; J15.1 Pneumonia due to Pseudomonas; J15.8 Pneumonia due to other specified bacteria; S22.43XA Multiple fractures of ribs, bilateral, initial encounter for closed fracture; S32.511A Fracture of superior rim of right pubis, initial encounter for closed fracture; E87.2 Acidosis; D62 Acute posthemorrhagic anemia; E27.40 Unspecified adrenocortical insufficiency; T79.7XXA Traumatic subcutaneous emphysema, initial encounter; S36.039A Unspecified laceration of spleen, initial encounter; T82.524A Displacement of infusion catheter, initial encounter; R78.81 Bacteremia; S06.0X9A Concussion with loss of consciousness of unspecified duration, initial encounter; T79.6XXA Traumatic ischemia of muscle, initial encounter; I10 Essential (primary) hypertension; E83.51 Hypocalcemia; E87.6 Hypokalemia; E83.42 Hypomagnesemia; E83.39 Other disorders of phosphorus metabolism; Y83.8 Other surgical procedures as the cause of abnormal reaction of the patient, or of later complication, without mention of misadventure at the time of the procedure; E87.5 Hyperkalemia; I48.91 Unspecified atrial fibrillation; B96.5 Pseudomonas (aeruginosa) (mallei) (pseudomallei) as the cause of diseases classified elsewhere; V89.2XXA Person injured in unspecified motor-vehicle accident, traffic, initial encounter; Y92.89 Other specified places as the place of occurrence of the external cause
CPT/HCPCS: 31500; 31624; 32551; 36415; 36416; 36430; 36556; 36600; 51702; 70450; 70486; 71045; 71260; 72125; 72170; 72190; 74019; 74177; 76705; 80048; 80053; 80162; 80306; 80307; 81001; 82533; 82550; 82805; 83605; 83690; 83735; 83880; 84100; 84145; 84146; 84484; 85007; 85025; 85027; 85610; 85730; 86850; 86900; 86901; 87040; 87070; 87077; 87149; 87186; 87205; 90471; 90715; 93005; 93010; 93306; 93970; 94003; 94640; 96365; 96367; 96374; 96375; G0390; J0360; J0690; J0692; J1160; J1364; J1650; J1720; J1940; J1956; J2060; J2185; J2250; J2370; J2405; J2543; J2704; J2710; J2765; J3010; J3475; J3480; J3490; J7030; J7042; J7050; J7070; J7620; P9016; P9045; P9048; Q9967; S0020; S0028; U0002; U0003; U0005

== ENCOUNTER 2022-01-02 08:13 | Outpatient (CLI) | payer OTHER, BC | END 2022-01-02 08:14 | disposition home or self-care (01) | LOC: CT 08:13 | PROVIDERS: ATTEND Emergency Medicine | DX: S06.309D Unspecified focal traumatic brain injury with loss of consciousness of unspecified duration, subsequent encounter (principal); V89.2XXA Person injured in unspecified motor-vehicle accident, traffic, initial encounter | CPT/HCPCS: 70450 ==